=== PATIENT | male | born 1960 | race Two or more races ===

== ENCOUNTER 2018-06-11 15:27 | Inpatient (IN) | payer MEDICAID, MEDICARE ==
[2018-06-11 16:03] LABS: NEUTROPHILE ABSOLUTE 6.7 Th/cmm (1.8-8.0); PLATELET COUNT 160 Th/cmm (150-400)
[2018-06-11 16:05] LABS: % BASOPHILS 0.4 % (0.0-2.0); % EOSINOPHILS 1.5 % (0.0-5.0); % LYMPHOCYTES 31.3 % (20.0-50.0); % MONOCYTES 8.6 % (2.0-10.0); % NEUTROPHILS 58.2 % (40.0-80.0); EOSINOPHILE ABSOLUTE 0.2 Th/cmm (0.1-0.4); HEMATOCRIT 49.1 % (41.0-60); HEMOGLOBIN 16.6 gm/dL (12-16); LYMPHOCYTE ABSOLUTE 3.6 Th/cmm (1.5-3.0); MEAN CELL VOLUME 91.9 fl (80-99); MEAN CORPUSCULAR HGB CONC 33.7 pg (28.0-36.0); MEAN PLATELET VOLUME 9.9 fl; RED BLOOD COUNT 5.35 Mil/cmm (4.30-5.70); WHITE BLOOD COUNT 11.5 Th/cmm (4.8-10.8)
--- NOTE | 2018-06-11 16:11 | ED Physician Chart ---
ED Chief Complaint/HPI - Patient Information Date Seen:: 06/11/18 Time Seen:: 15:48 Chief Complaint:: agitation and combative History of Present Illness:: This is a 58 yo male sent from the skilled nursing for evaluation and treatment for his combative behavior. he is chronically ill with epilepsy,dementia hypertension,copd and psychosis. Allergies:: Allergies Allergy/AdvReac Type Severity Reaction Status Date / Time No Known Allergies Allergy Verified 06/11/18 15:31 Vitals:: Vital Signs - 8 hr 06/11/18 15:40 Temp 98.3 F HR 100 RR 16 BP 130/86 O2 Sat % 95 Historian:: Medical Records Review:: Nurse's Note Reviewed, Old Chart Reviewed, Transfer documents Reviewed ED Review of Systems - Review of Systems General/Constitutional: Other (this patient is unable to give a review of systems.) ED Past Medical History - Past Medical History Obtainable: Yes Past Medical History: HTN, DM, Asthma/COPD Family History: None Social History: Non Smoker, No Alcohol, No Drug Use, Care Facility Psychiatricy History: Schizophrenia, Dementia Medication: Reviewed ED Physical Exam - Physical Examination General/Constitutional: Awake, Well-developed, well-nourished, Alert, No distress, GCS 15, Non-toxic appearing, Ambulatory Head: Atraumatic Eyes: Lids, conjuctiva normal, PERRL, EOMI Skin: Nl inspection, No rash, No skin lesions, No ecchymosis, Well hydrated, No lymphadenopathy ENMT: External ears, nose nl, Nasal exam nl, Lips, teeth, gums nl Neck: Nontender, Full ROM w/o pain, No JVD, No nuchal rigidity, No bruit, No mass, No stridor Respiratory: Nl effort/Exclusion, Clear to Auscultation, No Wheeze/Rhonchi/Rales Cardio Vascular: RRR, No murmur, gallop, rubs, NL S1 S2 GI: No tenderness/rebounding/guarding, No organomegaly, No hernia, Normal BS's, Nondistended, No mass/bruits, No McBurney tenderness : No CVA tenderness Extremities: No tenderness or effusion, Full ROM, normal strength in all extremities, No edema, Normal digits & nails Neuro/Psych: Alert/oriented, DTR's symmetric, Normal sensory exam, Normal motor strength, Judgement/insight normal (poor), Mood normal (combative mood), Normal gait, No focal deficits Misc: Normal back, No paraspinal tenderness ED Labs/Radiology/EKG Results - Radiology Results Results: chest x-ray = nad - EKG Interpretations EKG Time:: 15:57 Rate & Rhythm: rate = 90 [place]: left Intervals: no ectopy seen ED Assessment - Assessment General Assessment: psychosis ED Septic Shock - . Is Septic Shock (SBP<90, OR Lactate>4 mmol\L) present?: No - <6hrs of presentation: Vital Signs: Vital Signs - 8 hr 06/11/18 15:40 Temp 98.3 F HR 100 RR 16 BP 130/86 O2 Sat % 95 ED Reassessment (Disposition) - Diagnosis Diagnosis:: psychosis - Patient Disposition Discharge/Transfer:: Acute Care w/in this hosp Admitting Medical Physician:: Donovan Clarke Admitting Psych Physician:: Deonte Hodgson Condition at Disposition:: Unchanged
[2018-06-11 16:46] LABS: ALB/GLOB RATIO 1.1 (1.0-1.8); ALKALINE PHOSPHATASE 34 U/L (34-104); ANION GAP 12.6 (7.0-16.0); BILIRUBIN,TOTAL 0.3 mg/dL (0.3-1.0); BUN - UREA NITROGEN 17 mg/dL (7-25); CALCIUM SERUM 9.8 mg/dL (8.6-10.3); CARBON DIOXIDE 26.4 mEq/L (21.0-31.0); CHLORIDE 101 mEq/L (98-107); CREATININE - SERUM 0.7 mg/dL (0.7-1.3); GFR AFRICAN-AMERICAN > 60.0 ml/min (>90); GFR NON AFRICAN-AMERICAN > 60.0 ml/min; GLUCOSE 107 mg/dL (70-105); SGOT 18 U/L (13-39); SGPT/ALT 39 U/L (7-52); SODIUM SERUM 136 mEq/L (136-145); TOTAL PROTEIN,SERUM 7.5 gm/dL (6.0-8.3)
[2018-06-11 18:10] VITALS: BP 130/86
[2018-06-11] MEDS ORDERED: Maalox 30 mL Cup PO PRN (18:10)
[2018-06-11] MEDS ORDERED: Magnesium Hydroxide (MOM) 30 mL UDC PO PRN (18:10)
--- NOTE | 2018-06-12 09:23 | Diagnostic Imaging Report ---
CHEST X-RAY: AP view INDICATION: Congestion COMPARISON: None FINDINGS: Low lung volumes are noted with increased bibasal lung markings. Right-sided MATERIAL CHASER shunt is noted. No pleural effusions. Heart size normal. Atherosclerosis of the aortic arch is noted. Degenerative changes of the spine are noted. IMPRESSION: Low lung volumes with increased bibasal lung markings which may be due to atelectasis or scarring however, faint infiltrates cannot be excluded. Slight left basal nodularity is noted, nonspecific, however Short-term follow-up exam with improved inspiration, preferably PA and lateral views are recommended when clinically feasible. Shunt catheter noted. Atherosclerotic vascular disease.
[2018-06-12] MEDS: Calcium Carb/Vit D 500 mg/200 U Tab PO SCH ×2 (10:00→16:54)
[2018-06-12] MEDS: Multivitamin w/ Minerals Tab PO SCH (10:00)
--- NOTE | 2018-06-12 11:57 | History and Physical ---
History of Present Illness - HPI Chief Complaint: Increased in agitation HPI: Patient was send from SNF for evaluation of increased in agitation. Vital Signs: Last Vital Signs Temp 98 F 06/11/18 20:00 Pulse 88 06/11/18 20:00 Resp 18 06/11/18 20:00 BP 126/77 06/11/18 20:00 Pulse Ox 97 06/11/18 20:00 Past Medical History Cardiovascular: Report: CAD, CHF, HTN Pulmonary: Report: No Pertinent Hx FREELANCE WRITER: Report: Dementia GI: Report: No Pertinent Hx Psych: Report: Psychosis, Schizophrenia Musculoskeletal: Report: No Pertinent Hx Rheumatologic: Report: No pertinent Hx Infectious Disease: Report: No Pertinent Hx Renal/: Report: No Pertinent Hx Endocrine: Report: No Pertinent Hx Dermatology: Report: No Pertinent Hx - Past Surgical History Past Surgical History: No pertinent Hx Family Medical History - Family Member Mother History Unknown: Yes Ethnicity: Father History Unknown: Yes Social History Smoke: No Alcohol: None Drugs: None Lives: Longterm Domestic Violence: Negative - Medications Home Medications: Home Medication Medication Instructions Recorded Type Calcium 500 With Vit D 200 Int 1 tab PO BID 09/22/13 History Units Colace 100 mg PO BID 09/22/13 History Depakote ER 1,000 mg PO DAILY 09/22/13 History Kcl 20 meq PO BID 09/22/13 History Klonopin 0.5 mg PO DAILY 09/22/13 History Maalox 30 ml PO Q4H PRN 09/22/13 History Multivitamin & Multimineral 1 tab PO DAILY 09/22/13 History Namenda 10 mg PO BID 09/22/13 History Tylenol 650 mg PO Q6H PRN 09/22/13 History Brimonidine 0.15% Ophth [place] 1 drop EACH EYE TID 06/11/18 History [Alphagan 0.15% Ophth Soln] Brinzolamide [Azopt] 1 drop OP TID 06/11/18 History Latanoprost 0.005% Ophth Soln 1 drop EACH EYE HS 06/11/18 History [Xalatan 0.005% Ophth Soln] Magnesium Hydroxide [Milk of 30 ml PO HS PRN 06/11/18 History Magnesia] - Allergies Allergies/Adverse Reactions: Allergies Allergy/AdvReac Type Severity Reaction Status Date / Time No Known Allergies Allergy Verified 06/11/18 15:31 Review of Systems - Review of Systems Constitutional: Report: No Significant Eyes: Report: No Significant ENT: Report: No Significant Respiratory: Report: No Significant Cardiovascular: Report: No Significant Gastrointestinal: Report: No Significant Genitourinary: Report: No Significant Musculoskeletal: Report: No Significant Skin: Report: No Significant Neurological: Report: No Significant Physical Exam - Physical Exam HEENT: Report: Ears Nose Throat within normal limits Neck: Report: Within normal limits Cardiovascular Systems: Report: Regular, Rate and Rhythm Respiratory: Report: Breath Sounds are within normal limits Abdomen: Report: Non-tender to palpation Back: Report: Inspection of back is within normal limits. Extremities: Report: Non-tender to palpation., Other Skin: Report: Color of skin is within normal limits Neuro/Psych: Report: Disoriented to name time or place - Lab Results All Lab Results last 24 hours: Laboratory Results - last 24 hr 06/11/18 06/11/18 06/11/18 15:55 15:55 15:55 WBC 11.5 H RBC 5.35 Hgb 16.6 Hct 49.1 MCV 91.9 MCH 31.0 H MCHC Differential 33.7 RDW 12.0 Plt Count 160 MPV 9.9 Neutrophils % 58.2 Lymphocytes % 31.3 Monocytes % 8.6 Eosinophils % 1.5 Basophils % 0.4 Sodium 136 Potassium 4.0 Chloride 101 Carbon Dioxide 26.4 Anion Gap 12.6 BUN 17 Creatinine 0.7 Est GFR ( Amer) > 60.0 Est GFR (Non-Af Amer) > 60.0 BUN/Creatinine Ratio 24.3 Glucose 107 H Calcium 9.8 Total Bilirubin 0.3 AST 18 ALT 39 Alkaline Phosphatase 34 Troponin I < 0.01 L Total Protein 7.5 Albumin 4.0 L Globulin 3.5 Albumin/Globulin Ratio 1.1 TSH 06/11/18 15:55 WBC RBC Hgb Hct MCV MCH MCHC Differential RDW Plt Count MPV Neutrophils % Lymphocytes % Monocytes % Eosinophils % Basophils % Sodium Potassium Chloride Carbon Dioxide Anion Gap BUN Creatinine Est GFR ( Amer) Est GFR (Non-Af Amer) BUN/Creatinine Ratio Glucose Calcium Total Bilirubin AST ALT Alkaline Phosphatase Troponin I Total Protein Albumin Globulin Albumin/Globulin Ratio TSH 2.22 - Assessment Assessment: Patient is awake, alert, calm in no acute distress. Dx: Increased in agitation , Psychosis, Dementia, HTN, COPD, - Plan Plan: Patient is follow by Psychiatry. [facility] meds.
--- NOTE | 2018-06-13 03:10 | Psychiatric Evaluation ---
DATE OF SERVICE: 06/12/2018 IDENTIFYING DATA: The patient is a 58-year-old male, resident of [facility] in [place]. Information obtained by directly interviewing the patient as well as reviewing the admission papers and they are reliable. JUSTIFICATION OF HOSPITALIZATION: The patient is admitted here on a voluntary basis in view of his acute agitation and psychosis. CHIEF COMPLAINT: "They brought me in here. I need to go back there." HISTORY OF PRESENT ILLNESS: This is the first psychiatric hospitalization to [facility] for this patient who has been diagnosed to have schizophrenia, chronic paranoid type and the patient has not been making much sense even when we spoke with the [place]. The patient is going on a tangent. The patient has been having difficult time to cope with the stress. The patient is reported to have been very argumentative, agitated and has been testing the limits. The patient at the time of the hospitalization has been very agitated and the patient has to be referred over here for stabilization. I tried to interview the patient with the help of a [place]ian speaking lang interpreter. The patient has not been making much sense and is going on a tangent. The Physical examination is requested to be done by Dr. Clarke and is noted to be significant for hypertension, COPD and possible seizure disorder. PHYSICAL OR SEXUAL ABUSE HISTORY: None. LEGAL PROBLEMS: None at this time. SOCIAL HISTORY: The patient is in fdc facility. MENTAL STATUS EXAMINATION: The patient is a 58-year-old, looking his stated age, superficially cooperative, primarily B[place]udian speaking. The patient is going on a tangent very irritable, angry and is trying to look for an exit door. The patient is reported to be aggressive and resistive to care. The patient's coping skills at this time are noted to be very poor. The patient's speech is noted to be, but is noted to be irrelevant. The patient has paranoid delusions, but denies any command hallucinations. Insight and judgment were noted very much impaired. Impulse control is noted to be poor. Coping skills are also noted to be very poor. We are not able to get any reasonable explanation for this patient, but the patient has been focused on the staff trying to push him down and then he is very much upset about it. The patient's coping skills at this time are noted to be very poor. Insight and judgment also noted to be very much impaired. The patient has been having difficult time to cope with the stress. The patient's behavior is likely a danger to self and others. DIAGNOSTIC IMPRESSION: AXIS I: 1. Psychotic disorder, not otherwise specified 2. Schizophrenia, chronic paranoid type by history. PLAN: To continue the patient with valproic acid and add the Seroquel at 12.5 mg and follow the patient with the supportive therapy. ESTIMATED LENGTH OF STAY: 5-7 days. DISCHARGE CRITERIA: Threat to self or others and be able to cope up with the stress. [facility]# [id number]
[2018-06-13 07:17] LABS: HEMATOCRIT 47.6 % (41.0-60); HEMOGLOBIN 16.2 gm/dL (12-16); MEAN CELL VOLUME 91.8 fl (80-99); MEAN CORPUSCULAR HEMOGLOBIN 31.2 pg (26.0-30.0); MEAN PLATELET VOLUME 10.2 fl; PLATELET COUNT 150 Th/cmm (150-400); RED BLOOD COUNT 5.18 Mil/cmm (4.30-5.70); RED CELL DISTRIBUTION WIDTH 12.2 % (11.5-20.0); WHITE BLOOD COUNT 8.9 Th/cmm (4.8-10.8)
[2018-06-13 07:21] LABS: ALB/GLOB RATIO 1.2 (1.0-1.8); ALBUMIN 3.7 gm/dL (4.2-5.5); ALKALINE PHOSPHATASE 30 U/L (34-104); ANION GAP 9.7 (7.0-16.0); BILIRUBIN,TOTAL 0.7 mg/dL (0.3-1.0); BUN - UREA NITROGEN 12 mg/dL (7-25); CALCIUM SERUM 9.3 mg/dL (8.6-10.3); CARBON DIOXIDE 26.3 mEq/L (21.0-31.0); CHLORIDE 106 mEq/L (98-107); CREATININE - SERUM 0.6 mg/dL (0.7-1.3); GFR AFRICAN-AMERICAN > 60.0 ml/min (>90); GFR NON AFRICAN-AMERICAN > 60.0 ml/min; GLUCOSE 89 mg/dL (70-105); SGOT 24 U/L (13-39); SGPT/ALT 32 U/L (7-52); SODIUM SERUM 138 mEq/L (136-145); TOTAL PROTEIN,SERUM 6.8 gm/dL (6.0-8.3)
[2018-06-13 07:53] LABS: BAND NEUTROPHILE 0 % (0-10); BASOPHIL 0 % (0-3); EOSINOPHIL 3 % (0-5); LYMPHOCYTE 34 % (20-50); MONOCYTE 10 % (2-10); NEUTROPHILS 43 % (40-80)
[2018-06-13] MEDS: Calcium Carb/Vit D 500 mg/200 U Tab PO SCH ×2 (08:42→16:30)
[2018-06-13] MEDS: Multivitamin w/ Minerals Tab PO SCH (08:42)
--- NOTE | 2018-06-13 12:57 | General Progress Note ---
Subjective - Review of Systems Service Date: 06/13/18 Subjective: Patient is confused. Objective - Results Result Diagrams: 06/13/18 06:20 06/13/18 06:20 Recent Labs: Laboratory Last Values WBC 8.9 Th/cmm (4.8-10.8) 06/13/18 06:20 RBC 5.18 Mil/cmm (4.30-5.70) 06/13/18 06:20 Hgb 16.2 gm/dL (12-16) 06/13/18 06:20 Hct 47.6 % (41.0-60) 06/13/18 06:20 MCV 91.8 fl (80-99) 06/13/18 06:20 MCH 31.2 pg (26.0-30.0) H 06/13/18 06:20 MCHC Differential 34.0 pg (28.0-36.0) 06/13/18 06:20 RDW 12.2 % (11.5-20.0) 06/13/18 06:20 Plt Count 150 Th/cmm (150-400) 06/13/18 06:20 MPV 10.2 fl 06/13/18 06:20 Add Manual Diff YES 06/13/18 06:20 Neutrophils % LOCAL TELEPHONE OPERATOR 06/13/18 06:20 Band Neutrophils % 0 % (0-10) 06/13/18 06:20 Lymphocytes % LOCAL TELEPHONE OPERATOR 06/13/18 06:20 Monocytes % LOCAL TELEPHONE OPERATOR 06/13/18 06:20 Eosinophils % LOCAL TELEPHONE OPERATOR 06/13/18 06:20 Basophils % LOCAL TELEPHONE OPERATOR 06/13/18 06:20 Neutrophils (Manual) 43 % (40-80) 06/13/18 06:20 Lymphocytes 34 % (20-50) 06/13/18 06:20 Monocytes 10 % (2-10) 06/13/18 06:20 Eosinophils 3 % (0-5) 06/13/18 06:20 Basophils 0 % (0-3) 06/13/18 06:20 Sodium 138 mEq/L (136-145) 06/13/18 06:20 Potassium 4.0 mEq/L (3.5-5.1) 06/13/18 06:20 Chloride 106 mEq/L (98-107) 06/13/18 06:20 Carbon Dioxide 26.3 mEq/L (21.0-31.0) 06/13/18 06:20 Anion Gap 9.7 (7.0-16.0) 06/13/18 06:20 BUN 12 mg/dL (7-25) 06/13/18 06:20 Creatinine 0.6 mg/dL (0.7-1.3) L 06/13/18 06:20 Est GFR ( Amer) > 60.0 ml/min (>90) 06/13/18 06:20 Est GFR (Non-Af Amer) > 60.0 ml/min 06/13/18 06:20 BUN/Creatinine Ratio 20.0 06/13/18 06:20 Glucose 89 mg/dL (70-105) 06/13/18 06:20 Calcium 9.3 mg/dL (8.6-10.3) 06/13/18 06:20 Total Bilirubin 0.7 mg/dL (0.3-1.0) 06/13/18 06:20 AST 24 U/L (13-39) 06/13/18 06:20 ALT 32 U/L (7-52) 06/13/18 06:20 Alkaline Phosphatase 30 U/L (34-104) L 06/13/18 06:20 Troponin I < 0.01 ng/mL (0.01-0.05) L 06/11/18 15:55 Total Protein 6.8 gm/dL (6.0-8.3) 06/13/18 06:20 Albumin 3.7 gm/dL (4.2-5.5) L 06/13/18 06:20 Globulin 3.1 gm/dL 06/13/18 06:20 Albumin/Globulin Ratio 1.2 (1.0-1.8) 06/13/18 06:20 TSH 2.22 uIU/ml (0.34-5.60) 06/11/18 15:55 - Physical Exam Vitals and I&O: Vital Signs Temp 96.7 F 06/13/18 05:58 Pulse 60 06/13/18 05:58 Resp 20 06/13/18 05:58 BP 96/67 06/13/18 05:58 Pulse Ox 99 06/13/18 05:58 Intake & Output 06/12/18 06/13/18 06/13/18 18:59 06:59 18:59 Intake Total 1800 120 Balance 1800 120 Intake: Oral 1800 120 Other: # Voids 4 3 # Bowel Movements 0 0 Active Medications: Current Medications Acetaminophen (Tylenol) 650 mg PO Q6H PRN PRN Reason: Mild Pain 1-3 / Temp above 100 Stop: 08/10/18 18:09 Al Hydrox/Mg Hydrox/Simethicone (Maalox) 30 ml PO Q4HR PRN PRN Reason: GI DISTRESS Stop: 08/10/18 18:09 Brimonidine Tartrate (Alphagan 0.15% Ophth Soln) 1 drop EACH EYE TID [facility] Stop: 08/11/18 08:59 Last Admin: 06/13/18 08:42 Dose: 1 drop Calcium/Vitamin D (Oscal W/Vitamin D) 1 tab PO BID [facility] Stop: 08/11/18 08:59 Last Admin: 06/13/18 08:42 Dose: 1 tab Clonazepam (Klonopin) 0.5 mg PO DAILY [facility]; Protocol Stop: 08/11/18 08:59 Last Admin: 06/13/18 08:42 Dose: 0.5 mg Divalproex Sodium (Depakote Er) 1,000 mg PO DAILY [facility]; Protocol Stop: 08/11/18 08:59 Last Admin: 06/13/18 08:41 Dose: 1,000 mg Docusate Sodium (Colace) 100 mg PO BID [facility] Stop: 08/11/18 08:59 Last Admin: 06/13/18 08:41 Dose: 100 mg Isoniazid (Inh) 300 mg PO DAILY [facility] Stop: 08/11/18 08:59 Last Admin: 06/13/18 08:42 Dose: 300 mg Latanoprost (Xalatan 0.005% Ophth Soln) 1 drop EACH EYE HS [facility] Stop: 08/11/18 20:59 Last Admin: 06/12/18 21:00 Dose: 1 drop Magnesium Hydroxide (Milk Of Magnesia) 30 ml PO HS PRN PRN Reason: Constipation Memantine (Namenda) 10 mg PO BID [facility] Stop: 08/11/18 08:59 Last Admin: 06/13/18 08:42 Dose: 10 mg Quetiapine Fumarate (Seroquel) 12.5 mg PO HS [facility]; Protocol Stop: 08/11/18 20:59 Last Admin: 06/12/18 21:00 Dose: 12.5 mg Zolpidem Tartrate (Ambien) 5 mg PO HS PRN PRN Reason: Insomnia Stop: 08/10/18 20:59 Last Admin: 06/11/18 20:57 Dose: 5 mg General: Alert, Other (confused, not oriented) HEENT: Atraumatic Neck: Supple Cardiovascular: Regular rate Lungs: Clear to auscultation Abdomen: Bowel sounds, Soft Extremities: Other (No edema) Neurological: Normal gait Skin: Other (and dry) Psych/Mental Status: Other (Confused, not oriented) - Procedures Procedures: Procedures Procedure Code Date OTHER GROUP THERAPY 94.44 09/22/13 Assessment/Plan - Assessment Assessment: Patient is awake, alert, calm in no acute distress. Dx: Increased in agitation , Psychosis, Dementia, HTN, COPD, - Plan Plan: Patient is follow by Psychiatry. Will continue [facility] meds.
--- NOTE | 2018-06-14 03:43 | Progress Notes ---
DATE: 06/13/2018 PSYCHIATRIC PROGRESS NOTE SUBJECTIVE: Staff was spoken to. The patient is interviewed. Mood is noted to be irritable. Affect is constricted. The patient's insight and judgement are noted to be still impaired. Impulse control is noted to be poor. The patient is getting easily agitated. The patient has no insight into his illness. Continues to be very paranoid and is testing the limits. The patient is alert and awake. He knows that he is in the hospital and is stating that someone gave him some beer yesterday and he needs more of it. ASSESSMENT: The patient is still grossly psychotic. PLAN: To increase the dose of the Seroquel to 25 mg and continue the ____ and Klonopin and follow the patient with the supportive therapy. The patient is not ready to be discharged to a lower level of care because of the psychosis. JOB# [id number]
[2018-06-14 08:12] LABS: CHOLESTEROL 113 mg/dL (<200); HDL -HIGH DENSITY LIPOPROTEIN 31 mg/dL (23-92); TRIGLYCERIDES 99 mg/dL (<150)
[2018-06-14] MEDS: Multivitamin w/ Minerals Tab PO SCH (08:43)
[2018-06-14] MEDS: Calcium Carb/Vit D 500 mg/200 U Tab PO SCH ×2 (08:43→16:45)
--- NOTE | 2018-06-14 08:49 | General Progress Note ---
Subjective - Review of Systems Service Date: 06/14/18 Subjective: Patient is confused. Objective - Results Result Diagrams: 06/13/18 06:20 06/13/18 06:20 Recent Labs: Laboratory Last Values WBC 8.9 Th/cmm (4.8-10.8) 06/13/18 06:20 RBC 5.18 Mil/cmm (4.30-5.70) 06/13/18 06:20 Hgb 16.2 gm/dL (12-16) 06/13/18 06:20 Hct 47.6 % (41.0-60) 06/13/18 06:20 MCV 91.8 fl (80-99) 06/13/18 06:20 MCH 31.2 pg (26.0-30.0) H 06/13/18 06:20 MCHC Differential 34.0 pg (28.0-36.0) 06/13/18 06:20 RDW 12.2 % (11.5-20.0) 06/13/18 06:20 Plt Count 150 Th/cmm (150-400) 06/13/18 06:20 MPV 10.2 fl 06/13/18 06:20 Add Manual Diff YES 06/13/18 06:20 Neutrophils % BEHAVIOR INTERVENTIONIST 06/13/18 06:20 Band Neutrophils % 0 % (0-10) 06/13/18 06:20 Lymphocytes % BEHAVIOR INTERVENTIONIST 06/13/18 06:20 Monocytes % BEHAVIOR INTERVENTIONIST 06/13/18 06:20 Eosinophils % BEHAVIOR INTERVENTIONIST 06/13/18 06:20 Basophils % BEHAVIOR INTERVENTIONIST 06/13/18 06:20 Neutrophils (Manual) 43 % (40-80) 06/13/18 06:20 Lymphocytes 34 % (20-50) 06/13/18 06:20 Monocytes 10 % (2-10) 06/13/18 06:20 Eosinophils 3 % (0-5) 06/13/18 06:20 Basophils 0 % (0-3) 06/13/18 06:20 Sodium 138 mEq/L (136-145) 06/13/18 06:20 Potassium 4.0 mEq/L (3.5-5.1) 06/13/18 06:20 Chloride 106 mEq/L (98-107) 06/13/18 06:20 Carbon Dioxide 26.3 mEq/L (21.0-31.0) 06/13/18 06:20 Anion Gap 9.7 (7.0-16.0) 06/13/18 06:20 BUN 12 mg/dL (7-25) 06/13/18 06:20 Creatinine 0.6 mg/dL (0.7-1.3) L 06/13/18 06:20 Est GFR ( Amer) > 60.0 ml/min (>90) 06/13/18 06:20 Est GFR (Non-Af Amer) > 60.0 ml/min 06/13/18 06:20 BUN/Creatinine Ratio 20.0 06/13/18 06:20 Glucose 89 mg/dL (70-105) 06/13/18 06:20 Calcium 9.3 mg/dL (8.6-10.3) 06/13/18 06:20 Total Bilirubin 0.7 mg/dL (0.3-1.0) 06/13/18 06:20 AST 24 U/L (13-39) 06/13/18 06:20 ALT 32 U/L (7-52) 06/13/18 06:20 Alkaline Phosphatase 30 U/L (34-104) L 06/13/18 06:20 Troponin I < 0.01 ng/mL (0.01-0.05) L 06/11/18 15:55 Total Protein 6.8 gm/dL (6.0-8.3) 06/13/18 06:20 Albumin 3.7 gm/dL (4.2-5.5) L 06/13/18 06:20 Globulin 3.1 gm/dL 06/13/18 06:20 Albumin/Globulin Ratio 1.2 (1.0-1.8) 06/13/18 06:20 Triglycerides 99 mg/dL (<150) 06/14/18 07:20 Cholesterol 113 mg/dL (<200) 06/14/18 07:20 LDL Cholesterol Direct 77 mg/dL (75-193) 06/14/18 07:20 HDL Cholesterol 31 mg/dL (23-92) 06/14/18 07:20 TSH 2.22 uIU/ml (0.34-5.60) 06/11/18 15:55 - Physical Exam Vitals and I&O: Vital Signs Temp 96.9 F 06/14/18 06:26 Pulse 58 06/14/18 06:26 Resp 20 06/14/18 06:26 BP 103/64 06/14/18 06:26 Pulse Ox 98 06/14/18 06:26 Intake & Output 06/13/18 06/14/18 06/14/18 18:59 06:59 18:59 Intake Total 900 480 Balance 900 480 Intake: Oral 900 480 Other: # Voids 3 3 # Bowel Movements 1 0 Active Medications: Current Medications Acetaminophen (Tylenol) 650 mg PO Q6H PRN PRN Reason: Mild Pain 1-3 / Temp above 100 Stop: 08/10/18 18:09 Al Hydrox/Mg Hydrox/Simethicone (Maalox) 30 ml PO Q4HR PRN PRN Reason: GI DISTRESS Stop: 08/10/18 18:09 Brimonidine Tartrate (Alphagan 0.15% Ophth Soln) 1 drop EACH EYE TID [facility] Stop: 08/11/18 08:59 Last Admin: 06/14/18 08:42 Dose: 1 drop Calcium/Vitamin D (Oscal W/Vitamin D) 1 tab PO BID [facility] Stop: 08/11/18 08:59 Last Admin: 06/14/18 08:43 Dose: 1 tab Clonazepam (Klonopin) 0.5 mg PO DAILY [facility]; Protocol Stop: 08/11/18 08:59 Last Admin: 06/14/18 08:43 Dose: 0.5 mg Divalproex Sodium (Depakote Er) 1,000 mg PO DAILY [facility]; Protocol Stop: 08/11/18 08:59 Last Admin: 06/14/18 08:42 Dose: 1,000 mg Docusate Sodium (Colace) 100 mg PO BID [facility] Stop: 08/11/18 08:59 Last Admin: 06/14/18 08:43 Dose: 100 mg Isoniazid (Inh) 300 mg PO DAILY [facility] Stop: 08/11/18 08:59 Last Admin: 06/14/18 08:43 Dose: 300 mg Latanoprost (Xalatan 0.005% Ophth Soln) 1 drop EACH EYE HS [facility] Stop: 08/11/18 20:59 Last Admin: 06/13/18 20:50 Dose: 1 drop Magnesium Hydroxide (Milk Of Magnesia) 30 ml PO HS PRN PRN Reason: Constipation Memantine (Namenda) 10 mg PO BID [facility] Stop: 08/11/18 08:59 Last Admin: 06/14/18 08:43 Dose: 10 mg Quetiapine Fumarate (Seroquel) 25 mg PO HS [facility]; Protocol Stop: 08/12/18 20:59 Last Admin: 06/13/18 20:50 Dose: 25 mg Zolpidem Tartrate (Ambien) 5 mg PO HS PRN PRN Reason: Insomnia Stop: 08/10/18 20:59 Last Admin: 06/11/18 20:57 Dose: 5 mg General: Alert, Other (confused, not oriented) HEENT: Atraumatic Neck: Supple Cardiovascular: Regular rate Lungs: Clear to auscultation Abdomen: Bowel sounds, Soft Extremities: Other (No edema) Neurological: Normal gait Skin: Other (and dry) Psych/Mental Status: Other (Confused, not oriented) - Procedures Procedures: Procedures Procedure Code Date OTHER GROUP THERAPY 94.44 09/22/13 Assessment/Plan - Assessment Assessment: Patient is awake, alert, calm in no acute distress. Dx: Increased in agitation , Psychosis, Dementia, HTN, COPD, - Plan Plan: Patient is follow by Psychiatry. Will continue [facility] meds.
--- NOTE | 2018-06-14 10:58 | Consultation ---
DATE OF CONSULTATION: 06/13/2018 REFERRING PHYSICIAN: Negar Hurtado MD TYPE OF CONSULTATION: Psychology. HISTORY OF PRESENT ILLNESS: The patient is a 58-year-old male. The patient is a resident of [facility] and [facility]. The following is by record review and by the patient's self-report. The patient is being seen with Panamanian speaking staff to assist in the interpretation. The patient is being admitted due to acute agitation and possible psychosis. The staff at the patient's facility report that the patient had become argumentative and easily agitated as well as testing the limits of the staff. The patient presents as easily agitated and is markedly tangential. The patient is not making much sense. The Panamanian speaking foundry metallurgist is having difficulty trying to translate the patient's responses to the clinical interview questions. The patient did deny any suicidal ideation or homicidal ideation, plan or intention. PAST MEDICAL HISTORY: Please see history and physical by Dr. Clarke. PAST PSYCHIATRIC HISTORY: The patient has a long history of schizophrenia, chronic paranoid type. The patient is under the care of a psychiatrist and a psychologist at the patient's placement. SUBSTANCE ABUSE HISTORY: None. PSYCHOSOCIAL HISTORY: The patient did not answer questions about occupational or educational history. The patient states he was raised Restorationism. The patient did not answer questions about marital status or family involvement including whether he has any children. Record review indicates the patient is single with no children. The patient did not answer questions about history of physical or sexual abuse. The patient did not answer the questions about current legal problems. The patient is a resident of [facility]. MENTAL STATUS EXAMINATION: The patient appears to be his stated age. The patient's attitude is superficially cooperative. The patient is Panamanian speaking. Panamanian speaking staff is present to assist in the interpretation for this health technical writer. Eye contact is poor. Speech is pressured. Thought process shows to be markedly tangential with loose associations. There is evidence of some paranoid ideation and paranoid delusions. The patient denied any suicidal ideation, plan or intention. The patient denied any auditory or visual hallucinations. The patient's behavior has been resistive to care and somewhat aggressive according to the staff on the unit. Impulse control is inadequate. Concentration is poor. Sensorium is alert and oriented to self only. The patient did not participate in the memory assessment. The patient did not participate in the interpretation of proverbs. The patient's response to questions about striking out towards the staff include the patient's claim that the staff was trying to push him. The patient continued to seem easily angered and trying to leave the room. The patient had difficulty responding to the latter part of the clinical interview questions. Insight is impaired. Judgment is impaired. DIAGNOSTIC IMPRESSION: AXIS I: History of schizophrenia, chronic paranoid type, in acute exacerbation. AXIS II: Deferred. AXIS III: Please see history and physical. TREATMENT PLAN: The patient has been seen by Dr. Hurtado for psychiatric evaluation and for the management of the patient's psychotropic medications. According to the attending psychiatrist, the patient is being continued on valproic acid and Seroquel has been added at 12.5 mg. We will provide supportive psychotherapy to include de-escalation and limit setting to prevent the patient from acting out or striking out at the staff. We will provide motivational enhancement for the patient to become compliant and stay compliant with all aspects of his care and treatment. We will provide reality orientation, differentiation and integration. We will encourage the patient to be able to demonstrate emotional and self-regulation prior to discharge. We will continue to provide the opportunity on a daily basis for the patient to verbally contract for safety to include no self-harm and no harm to others prior to his discharge. We will continue with supportive psychotherapy and include coping strategies for chronic severe mental illness as well. Thank you Dr. Hurtado, for this consult and the opportunity to participate in this patient's care. [facility]# [id number] LANCE
--- NOTE | 2018-06-14 23:57 | Progress Notes ---
DATE: 06/14/2018 PSYCHIATRIC PROGRESS NOTE SUBJECTIVE: Staff was spoken to. The patient is interviewed. Mood is noted to be irritable. Affect is constricted. The patient is extremely irritable and angry and is going on a tangent. The patient's insight and judgment are very much impaired. Impulse control is poor. The patient has not been able to make much sense. The patient is currently on 1000 mg of the Depakote and 25 of the Seroquel. Plan to increase the dose of the Seroquel to 50 mg tonight and follow the patient with supportive therapy. The patient has been going on a tangent and is not able to provide coherent information. JOB# [id number]
[2018-06-15] MEDS: Multivitamin w/ Minerals Tab PO SCH (08:33)
[2018-06-15] MEDS: Calcium Carb/Vit D 500 mg/200 U Tab PO SCH ×2 (08:33→16:51)
--- NOTE | 2018-06-15 08:45 | General Progress Note ---
Subjective - Review of Systems Service Date: 06/15/18 Subjective: Patient is confused. Objective - Results Result Diagrams: 06/13/18 06:20 06/13/18 06:20 Recent Labs: Laboratory Last Values WBC 8.9 Th/cmm (4.8-10.8) 06/13/18 06:20 RBC 5.18 Mil/cmm (4.30-5.70) 06/13/18 06:20 Hgb 16.2 gm/dL (12-16) 06/13/18 06:20 Hct 47.6 % (41.0-60) 06/13/18 06:20 MCV 91.8 fl (80-99) 06/13/18 06:20 MCH 31.2 pg (26.0-30.0) H 06/13/18 06:20 MCHC Differential 34.0 pg (28.0-36.0) 06/13/18 06:20 RDW 12.2 % (11.5-20.0) 06/13/18 06:20 Plt Count 150 Th/cmm (150-400) 06/13/18 06:20 MPV 10.2 fl 06/13/18 06:20 Add Manual Diff YES 06/13/18 06:20 Neutrophils % DB2 DBA 06/13/18 06:20 Band Neutrophils % 0 % (0-10) 06/13/18 06:20 Lymphocytes % DB2 DBA 06/13/18 06:20 Monocytes % DB2 DBA 06/13/18 06:20 Eosinophils % DB2 DBA 06/13/18 06:20 Basophils % DB2 DBA 06/13/18 06:20 Neutrophils (Manual) 43 % (40-80) 06/13/18 06:20 Lymphocytes 34 % (20-50) 06/13/18 06:20 Monocytes 10 % (2-10) 06/13/18 06:20 Eosinophils 3 % (0-5) 06/13/18 06:20 Basophils 0 % (0-3) 06/13/18 06:20 Sodium 138 mEq/L (136-145) 06/13/18 06:20 Potassium 4.0 mEq/L (3.5-5.1) 06/13/18 06:20 Chloride 106 mEq/L (98-107) 06/13/18 06:20 Carbon Dioxide 26.3 mEq/L (21.0-31.0) 06/13/18 06:20 Anion Gap 9.7 (7.0-16.0) 06/13/18 06:20 BUN 12 mg/dL (7-25) 06/13/18 06:20 Creatinine 0.6 mg/dL (0.7-1.3) L 06/13/18 06:20 Est GFR ( Amer) > 60.0 ml/min (>90) 06/13/18 06:20 Est GFR (Non-Af Amer) > 60.0 ml/min 06/13/18 06:20 BUN/Creatinine Ratio 20.0 06/13/18 06:20 Glucose 89 mg/dL (70-105) 06/13/18 06:20 Calcium 9.3 mg/dL (8.6-10.3) 06/13/18 06:20 Total Bilirubin 0.7 mg/dL (0.3-1.0) 06/13/18 06:20 AST 24 U/L (13-39) 06/13/18 06:20 ALT 32 U/L (7-52) 06/13/18 06:20 Alkaline Phosphatase 30 U/L (34-104) L 06/13/18 06:20 Troponin I < 0.01 ng/mL (0.01-0.05) L 06/11/18 15:55 Total Protein 6.8 gm/dL (6.0-8.3) 06/13/18 06:20 Albumin 3.7 gm/dL (4.2-5.5) L 06/13/18 06:20 Globulin 3.1 gm/dL 06/13/18 06:20 Albumin/Globulin Ratio 1.2 (1.0-1.8) 06/13/18 06:20 Triglycerides 99 mg/dL (<150) 06/14/18 07:20 Cholesterol 113 mg/dL (<200) 06/14/18 07:20 LDL Cholesterol Direct 77 mg/dL (75-193) 06/14/18 07:20 HDL Cholesterol 31 mg/dL (23-92) 06/14/18 07:20 TSH 2.22 uIU/ml (0.34-5.60) 06/11/18 15:55 - Physical Exam Vitals and I&O: Vital Signs Temp 97.6 F 06/15/18 06:27 Pulse 57 06/15/18 06:27 Resp 20 06/15/18 06:27 BP 106/58 06/15/18 06:27 Pulse Ox 97 06/15/18 06:27 Intake & Output 06/14/18 06/15/18 06/15/18 18:59 06:59 18:59 Intake Total 1000 480 Balance 1000 480 Intake: Oral 1000 480 Other: # Voids 4 3 # Bowel Movements 1 0 Active Medications: Current Medications Acetaminophen (Tylenol) 650 mg PO Q6H PRN PRN Reason: Mild Pain 1-3 / Temp above 100 Stop: 08/10/18 18:09 Al Hydrox/Mg Hydrox/Simethicone (Maalox) 30 ml PO Q4HR PRN PRN Reason: GI DISTRESS Stop: 08/10/18 18:09 Brimonidine Tartrate (Alphagan 0.15% Ophth Soln) 1 drop EACH EYE TID [facility] Stop: 08/11/18 08:59 Last Admin: 06/15/18 08:37 Dose: 1 drop Calcium/Vitamin D (Oscal W/Vitamin D) 1 tab PO BID [facility] Stop: 08/11/18 08:59 Last Admin: 06/15/18 08:33 Dose: 1 tab Clonazepam (Klonopin) 0.5 mg PO DAILY [facility]; Protocol Stop: 08/11/18 08:59 Last Admin: 06/15/18 08:37 Dose: 0.5 mg Divalproex Sodium (Depakote Er) 1,000 mg PO DAILY [facility]; Protocol Stop: 08/11/18 08:59 Last Admin: 06/15/18 08:34 Dose: 1,000 mg Docusate Sodium (Colace) 100 mg PO BID [facility] Stop: 08/11/18 08:59 Last Admin: 06/15/18 08:37 Dose: 100 mg Isoniazid (Inh) 300 mg PO DAILY [facility] Stop: 08/11/18 08:59 Last Admin: 06/15/18 08:40 Dose: 300 mg Latanoprost (Xalatan 0.005% Ophth Soln) 1 drop EACH EYE HS [facility] Stop: 08/11/18 20:59 Last Admin: 06/14/18 21:41 Dose: 1 drop Magnesium Hydroxide (Milk Of Magnesia) 30 ml PO HS PRN PRN Reason: Constipation Memantine (Namenda) 10 mg PO BID [facility] Stop: 08/11/18 08:59 Last Admin: 06/15/18 08:32 Dose: 10 mg Quetiapine Fumarate (Seroquel) 50 mg PO HS [facility]; Protocol Stop: 08/13/18 20:59 Last Admin: 06/14/18 21:40 Dose: 50 mg Zolpidem Tartrate (Ambien) 5 mg PO HS PRN PRN Reason: Insomnia Stop: 08/10/18 20:59 Last Admin: 06/14/18 21:41 Dose: 5 mg General: Alert, Other (confused, not oriented) HEENT: Atraumatic Neck: Supple Cardiovascular: Regular rate Lungs: Clear to auscultation Abdomen: Bowel sounds, Soft Extremities: Other (No edema) Neurological: Normal gait Skin: Other (and dry) Psych/Mental Status: Other (Confused, not oriented) - Procedures Procedures: Procedures Procedure Code Date OTHER GROUP THERAPY 94.44 09/22/13 Assessment/Plan - Assessment Assessment: Patient is awake, alert, calm in no acute distress. Dx: Increased in agitation , Psychosis, Dementia, HTN, COPD, - Plan Plan: Patient is follow by Psychiatry. Will continue [facility] meds.
--- NOTE | 2018-06-16 06:57 | Progress Notes ---
DATE: 06/15/2018 SUBJECTIVE: Staff was spoken to. The patient is interviewed. Mood is noted to be irritable. Affect is constricted. Insight and judgment at this time are noted to be still impaired. Impulse control is noted to be poor. The patient is testing the limits. No side effects to the medications are noted. The patient has been currently on 50 mg of Seroquel and has been able to tolerate the medication. The patient is being closely monitored for his aggressive behavior. ASSESSMENT: The patient is still psychotic and impulsive. PLAN: To continue the patient with the current medications. I encouraged the patient to verbalize the concerns rather than to act out. JOB# [id number]
[2018-06-16] MEDS: Calcium Carb/Vit D 500 mg/200 U Tab PO SCH ×2 (08:33→17:06)
[2018-06-16] MEDS: Multivitamin w/ Minerals Tab PO SCH (08:33)
--- NOTE | 2018-06-16 08:42 | General Progress Note ---
Subjective - Review of Systems Service Date: 06/16/18 Subjective: Patient is confused. Objective - Results Result Diagrams: 06/13/18 06:20 06/13/18 06:20 Recent Labs: Laboratory Last Values WBC 8.9 Th/cmm (4.8-10.8) 06/13/18 06:20 RBC 5.18 Mil/cmm (4.30-5.70) 06/13/18 06:20 Hgb 16.2 gm/dL (12-16) 06/13/18 06:20 Hct 47.6 % (41.0-60) 06/13/18 06:20 MCV 91.8 fl (80-99) 06/13/18 06:20 MCH 31.2 pg (26.0-30.0) H 06/13/18 06:20 MCHC Differential 34.0 pg (28.0-36.0) 06/13/18 06:20 RDW 12.2 % (11.5-20.0) 06/13/18 06:20 Plt Count 150 Th/cmm (150-400) 06/13/18 06:20 MPV 10.2 fl 06/13/18 06:20 Add Manual Diff YES 06/13/18 06:20 Neutrophils % DOCTOR OF CHIROPRACTIC 06/13/18 06:20 Band Neutrophils % 0 % (0-10) 06/13/18 06:20 Lymphocytes % DOCTOR OF CHIROPRACTIC 06/13/18 06:20 Monocytes % DOCTOR OF CHIROPRACTIC 06/13/18 06:20 Eosinophils % DOCTOR OF CHIROPRACTIC 06/13/18 06:20 Basophils % DOCTOR OF CHIROPRACTIC 06/13/18 06:20 Neutrophils (Manual) 43 % (40-80) 06/13/18 06:20 Lymphocytes 34 % (20-50) 06/13/18 06:20 Monocytes 10 % (2-10) 06/13/18 06:20 Eosinophils 3 % (0-5) 06/13/18 06:20 Basophils 0 % (0-3) 06/13/18 06:20 Sodium 138 mEq/L (136-145) 06/13/18 06:20 Potassium 4.0 mEq/L (3.5-5.1) 06/13/18 06:20 Chloride 106 mEq/L (98-107) 06/13/18 06:20 Carbon Dioxide 26.3 mEq/L (21.0-31.0) 06/13/18 06:20 Anion Gap 9.7 (7.0-16.0) 06/13/18 06:20 BUN 12 mg/dL (7-25) 06/13/18 06:20 Creatinine 0.6 mg/dL (0.7-1.3) L 06/13/18 06:20 Est GFR ( Amer) > 60.0 ml/min (>90) 06/13/18 06:20 Est GFR (Non-Af Amer) > 60.0 ml/min 06/13/18 06:20 BUN/Creatinine Ratio 20.0 06/13/18 06:20 Glucose 89 mg/dL (70-105) 06/13/18 06:20 Calcium 9.3 mg/dL (8.6-10.3) 06/13/18 06:20 Total Bilirubin 0.7 mg/dL (0.3-1.0) 06/13/18 06:20 AST 24 U/L (13-39) 06/13/18 06:20 ALT 32 U/L (7-52) 06/13/18 06:20 Alkaline Phosphatase 30 U/L (34-104) L 06/13/18 06:20 Troponin I < 0.01 ng/mL (0.01-0.05) L 06/11/18 15:55 Total Protein 6.8 gm/dL (6.0-8.3) 06/13/18 06:20 Albumin 3.7 gm/dL (4.2-5.5) L 06/13/18 06:20 Globulin 3.1 gm/dL 06/13/18 06:20 Albumin/Globulin Ratio 1.2 (1.0-1.8) 06/13/18 06:20 Triglycerides 99 mg/dL (<150) 06/14/18 07:20 Cholesterol 113 mg/dL (<200) 06/14/18 07:20 LDL Cholesterol Direct 77 mg/dL (75-193) 06/14/18 07:20 HDL Cholesterol 31 mg/dL (23-92) 06/14/18 07:20 TSH 2.22 uIU/ml (0.34-5.60) 06/11/18 15:55 - Physical Exam Vitals and I&O: Vital Signs Temp 96.8 F 06/16/18 06:22 Pulse 55 06/16/18 06:22 Resp 19 06/16/18 06:22 BP 102/62 06/16/18 06:22 Pulse Ox 98 06/16/18 06:22 Intake & Output 06/15/18 06/16/18 06/16/18 18:59 06:59 18:59 Intake Total 120 Balance 120 Intake: Oral 120 Other: # Voids 3 3 # Bowel Movements 1 0 Active Medications: Current Medications Acetaminophen (Tylenol) 650 mg PO Q6H PRN PRN Reason: Mild Pain 1-3 / Temp above 100 Stop: 08/10/18 18:09 Al Hydrox/Mg Hydrox/Simethicone (Maalox) 30 ml PO Q4HR PRN PRN Reason: GI DISTRESS Stop: 08/10/18 18:09 Brimonidine Tartrate (Alphagan 0.15% Ophth Soln) 1 drop EACH EYE TID [facility] Stop: 08/11/18 08:59 Last Admin: 06/16/18 08:34 Dose: 1 drop Calcium/Vitamin D (Oscal W/Vitamin D) 1 tab PO BID [facility] Stop: 08/11/18 08:59 Last Admin: 06/16/18 08:33 Dose: 1 tab Clonazepam (Klonopin) 0.5 mg PO DAILY [facility]; Protocol Stop: 08/11/18 08:59 Last Admin: 06/16/18 08:32 Dose: 0.5 mg Divalproex Sodium (Depakote Er) 1,000 mg PO DAILY [facility]; Protocol Stop: 08/11/18 08:59 Last Admin: 06/16/18 08:33 Dose: 1,000 mg Docusate Sodium (Colace) 100 mg PO BID [facility] Stop: 08/11/18 08:59 Last Admin: 06/16/18 08:32 Dose: 100 mg Isoniazid (Inh) 300 mg PO DAILY [facility] Stop: 08/11/18 08:59 Last Admin: 06/16/18 08:33 Dose: 300 mg Latanoprost (Xalatan 0.005% Ophth Soln) 1 drop EACH EYE HS [facility] Stop: 08/11/18 20:59 Last Admin: 06/15/18 20:51 Dose: 1 drop Magnesium Hydroxide (Milk Of Magnesia) 30 ml PO HS PRN PRN Reason: Constipation Memantine (Namenda) 10 mg PO BID [facility] Stop: 08/11/18 08:59 Last Admin: 06/16/18 08:33 Dose: 10 mg Quetiapine Fumarate (Seroquel) 50 mg PO HS [facility]; Protocol Stop: 08/13/18 20:59 Last Admin: 06/15/18 20:51 Dose: 50 mg Zolpidem Tartrate (Ambien) 5 mg PO HS PRN PRN Reason: Insomnia Stop: 08/10/18 20:59 Last Admin: 06/14/18 21:41 Dose: 5 mg General: Alert, Other (confused, not oriented) HEENT: Atraumatic Neck: Supple Cardiovascular: Regular rate Lungs: Clear to auscultation Abdomen: Bowel sounds, Soft Extremities: Other (No edema) Neurological: Normal gait Skin: Other (and dry) Psych/Mental Status: Other (Confused, not oriented) - Procedures Procedures: Procedures Procedure Code Date OTHER GROUP THERAPY 94.44 09/22/13 Assessment/Plan - Assessment Assessment: Patient is awake, alert, calm in no acute distress. Dx: Increased in agitation , Psychosis, Dementia, HTN, COPD, - Plan Plan: Patient is follow by Psychiatry. Will continue [facility] meds.
--- NOTE | 2018-06-16 15:29 | Progress Notes ---
DATE: 06/16/2018 PSYCHIATRIC PROGRESS NOTE PROGRESS ON THE UNIT: Staff was spoken to. The patient is interviewed. Mood is noted to be irritable. Affect is constricted. Insight and judgment at this time are noted to still impaired. Impulse control is noted to be limited. Coping skills are noted to be limited. The patient has been having difficult time to cope with the stress. The patient continues to be paranoid and is going on a tangent. ASSESSMENT: The patient is still psychotic and impulsive. PLAN: To continue the patient with current medications and followup. JOB# [id number]
--- NOTE | 2018-06-17 09:38 | General Progress Note ---
Subjective - Review of Systems Service Date: 06/17/18 Subjective: Patient is confused. Objective - Results Result Diagrams: 06/13/18 06:20 06/13/18 06:20 Recent Labs: Laboratory Last Values WBC 8.9 Th/cmm (4.8-10.8) 06/13/18 06:20 RBC 5.18 Mil/cmm (4.30-5.70) 06/13/18 06:20 Hgb 16.2 gm/dL (12-16) 06/13/18 06:20 Hct 47.6 % (41.0-60) 06/13/18 06:20 MCV 91.8 fl (80-99) 06/13/18 06:20 MCH 31.2 pg (26.0-30.0) H 06/13/18 06:20 MCHC Differential 34.0 pg (28.0-36.0) 06/13/18 06:20 RDW 12.2 % (11.5-20.0) 06/13/18 06:20 Plt Count 150 Th/cmm (150-400) 06/13/18 06:20 MPV 10.2 fl 06/13/18 06:20 Add Manual Diff YES 06/13/18 06:20 Neutrophils % ESTIMATOR LUMBER 06/13/18 06:20 Band Neutrophils % 0 % (0-10) 06/13/18 06:20 Lymphocytes % ESTIMATOR LUMBER 06/13/18 06:20 Monocytes % ESTIMATOR LUMBER 06/13/18 06:20 Eosinophils % ESTIMATOR LUMBER 06/13/18 06:20 Basophils % ESTIMATOR LUMBER 06/13/18 06:20 Neutrophils (Manual) 43 % (40-80) 06/13/18 06:20 Lymphocytes 34 % (20-50) 06/13/18 06:20 Monocytes 10 % (2-10) 06/13/18 06:20 Eosinophils 3 % (0-5) 06/13/18 06:20 Basophils 0 % (0-3) 06/13/18 06:20 Sodium 138 mEq/L (136-145) 06/13/18 06:20 Potassium 4.0 mEq/L (3.5-5.1) 06/13/18 06:20 Chloride 106 mEq/L (98-107) 06/13/18 06:20 Carbon Dioxide 26.3 mEq/L (21.0-31.0) 06/13/18 06:20 Anion Gap 9.7 (7.0-16.0) 06/13/18 06:20 BUN 12 mg/dL (7-25) 06/13/18 06:20 Creatinine 0.6 mg/dL (0.7-1.3) L 06/13/18 06:20 Est GFR ( Amer) > 60.0 ml/min (>90) 06/13/18 06:20 Est GFR (Non-Af Amer) > 60.0 ml/min 06/13/18 06:20 BUN/Creatinine Ratio 20.0 06/13/18 06:20 Glucose 89 mg/dL (70-105) 06/13/18 06:20 Calcium 9.3 mg/dL (8.6-10.3) 06/13/18 06:20 Total Bilirubin 0.7 mg/dL (0.3-1.0) 06/13/18 06:20 AST 24 U/L (13-39) 06/13/18 06:20 ALT 32 U/L (7-52) 06/13/18 06:20 Alkaline Phosphatase 30 U/L (34-104) L 06/13/18 06:20 Troponin I < 0.01 ng/mL (0.01-0.05) L 06/11/18 15:55 Total Protein 6.8 gm/dL (6.0-8.3) 06/13/18 06:20 Albumin 3.7 gm/dL (4.2-5.5) L 06/13/18 06:20 Globulin 3.1 gm/dL 06/13/18 06:20 Albumin/Globulin Ratio 1.2 (1.0-1.8) 06/13/18 06:20 Triglycerides 99 mg/dL (<150) 06/14/18 07:20 Cholesterol 113 mg/dL (<200) 06/14/18 07:20 LDL Cholesterol Direct 77 mg/dL (75-193) 06/14/18 07:20 HDL Cholesterol 31 mg/dL (23-92) 06/14/18 07:20 TSH 2.22 uIU/ml (0.34-5.60) 06/11/18 15:55 - Physical Exam Vitals and I&O: Vital Signs Temp 97.3 F 06/17/18 06:58 Pulse 69 06/17/18 06:58 Resp 20 06/17/18 06:58 BP 100/60 06/17/18 06:58 Pulse Ox 98 06/16/18 14:00 Intake & Output 06/16/18 06/17/18 06/17/18 18:59 06:59 18:59 Intake Total 1600 Balance 1600 Intake: Oral 1600 Other: # Voids 4 # Bowel Movements 0 Active Medications: Current Medications Acetaminophen (Tylenol) 650 mg PO Q6H PRN PRN Reason: Mild Pain 1-3 / Temp above 100 Stop: 08/10/18 18:09 Al Hydrox/Mg Hydrox/Simethicone (Maalox) 30 ml PO Q4HR PRN PRN Reason: GI DISTRESS Stop: 08/10/18 18:09 Brimonidine Tartrate (Alphagan 0.15% Ophth Soln) 1 drop EACH EYE TID [facility] Stop: 08/11/18 08:59 Last Admin: 06/16/18 20:33 Dose: 1 drop Calcium/Vitamin D (Oscal W/Vitamin D) 1 tab PO BID [facility] Stop: 08/11/18 08:59 Last Admin: 06/16/18 17:06 Dose: 1 tab Clonazepam (Klonopin) 0.5 mg PO DAILY [facility]; Protocol Stop: 08/11/18 08:59 Last Admin: 06/16/18 08:32 Dose: 0.5 mg Divalproex Sodium (Depakote Er) 1,000 mg PO DAILY [facility]; Protocol Stop: 08/11/18 08:59 Last Admin: 06/16/18 08:33 Dose: 1,000 mg Docusate Sodium (Colace) 100 mg PO BID [facility] Stop: 08/11/18 08:59 Last Admin: 06/16/18 17:06 Dose: 100 mg Isoniazid (Inh) 300 mg PO DAILY [facility] Stop: 08/11/18 08:59 Last Admin: 06/16/18 08:33 Dose: 300 mg Latanoprost (Xalatan 0.005% Ophth Soln) 1 drop EACH EYE HS [facility] Stop: 08/11/18 20:59 Last Admin: 06/16/18 20:33 Dose: 1 drop Magnesium Hydroxide (Milk Of Magnesia) 30 ml PO HS PRN PRN Reason: Constipation Memantine (Namenda) 10 mg PO BID [facility] Stop: 08/11/18 08:59 Last Admin: 06/16/18 17:06 Dose: 10 mg Quetiapine Fumarate (Seroquel) 50 mg PO HS [facility]; Protocol Stop: 08/13/18 20:59 Last Admin: 06/16/18 20:33 Dose: 50 mg Zolpidem Tartrate (Ambien) 5 mg PO HS PRN PRN Reason: Insomnia Stop: 08/10/18 20:59 Last Admin: 06/14/18 21:41 Dose: 5 mg General: Alert, Other (confused, not oriented) HEENT: Atraumatic Neck: Supple Cardiovascular: Regular rate Lungs: Clear to auscultation Abdomen: Bowel sounds, Soft Extremities: Other (No edema) Neurological: Normal gait Skin: Other (and dry) Psych/Mental Status: Other (Confused, not oriented) - Procedures Procedures: Procedures Procedure Code Date OTHER GROUP THERAPY 94.44 09/22/13 Assessment/Plan - Assessment Assessment: Patient is awake, alert, calm in no acute distress. Dx: Increased in agitation , Psychosis, Dementia, HTN, COPD, - Plan Plan: Patient is follow by Psychiatry. Will continue [facility] meds.
[2018-06-17] MEDS: Calcium Carb/Vit D 500 mg/200 U Tab PO SCH ×2 (10:08→17:17)
[2018-06-17] MEDS: Multivitamin w/ Minerals Tab PO SCH (10:10)
--- NOTE | 2018-06-18 03:02 | Progress Notes ---
DATE: 06/17/2018 PSYCHIATRIC PROGRESS NOTE SUBJECTIVE: Staff was spoken to. The patient is interviewed. Mood is noted to be irritable. Affect is constricted. The patient has been having difficult time to cope with the stress. He continues to have paranoid delusions. The patient is pacing on the unit. The patient, however, has been able to tolerate the medication. No seizures are reported. ASSESSMENT: The patient is still impulsive and paranoid. PLAN: To continue the patient with supportive therapy and follow up. [facility]# [id number]
--- NOTE | 2018-06-18 09:58 | General Progress Note ---
Subjective - Review of Systems Service Date: 06/18/19 Subjective: Patient is confused. Objective - Results Result Diagrams: 06/13/18 06:20 06/13/18 06:20 Recent Labs: Laboratory Last Values WBC 8.9 Th/cmm (4.8-10.8) 06/13/18 06:20 RBC 5.18 Mil/cmm (4.30-5.70) 06/13/18 06:20 Hgb 16.2 gm/dL (12-16) 06/13/18 06:20 Hct 47.6 % (41.0-60) 06/13/18 06:20 MCV 91.8 fl (80-99) 06/13/18 06:20 MCH 31.2 pg (26.0-30.0) H 06/13/18 06:20 MCHC Differential 34.0 pg (28.0-36.0) 06/13/18 06:20 RDW 12.2 % (11.5-20.0) 06/13/18 06:20 Plt Count 150 Th/cmm (150-400) 06/13/18 06:20 MPV 10.2 fl 06/13/18 06:20 Add Manual Diff YES 06/13/18 06:20 Neutrophils % NUISANCE ANIMAL DAMAGE CONTROL AGENT 06/13/18 06:20 Band Neutrophils % 0 % (0-10) 06/13/18 06:20 Lymphocytes % NUISANCE ANIMAL DAMAGE CONTROL AGENT 06/13/18 06:20 Monocytes % NUISANCE ANIMAL DAMAGE CONTROL AGENT 06/13/18 06:20 Eosinophils % NUISANCE ANIMAL DAMAGE CONTROL AGENT 06/13/18 06:20 Basophils % NUISANCE ANIMAL DAMAGE CONTROL AGENT 06/13/18 06:20 Neutrophils (Manual) 43 % (40-80) 06/13/18 06:20 Lymphocytes 34 % (20-50) 06/13/18 06:20 Monocytes 10 % (2-10) 06/13/18 06:20 Eosinophils 3 % (0-5) 06/13/18 06:20 Basophils 0 % (0-3) 06/13/18 06:20 Sodium 138 mEq/L (136-145) 06/13/18 06:20 Potassium 4.0 mEq/L (3.5-5.1) 06/13/18 06:20 Chloride 106 mEq/L (98-107) 06/13/18 06:20 Carbon Dioxide 26.3 mEq/L (21.0-31.0) 06/13/18 06:20 Anion Gap 9.7 (7.0-16.0) 06/13/18 06:20 BUN 12 mg/dL (7-25) 06/13/18 06:20 Creatinine 0.6 mg/dL (0.7-1.3) L 06/13/18 06:20 Est GFR ( Amer) > 60.0 ml/min (>90) 06/13/18 06:20 Est GFR (Non-Af Amer) > 60.0 ml/min 06/13/18 06:20 BUN/Creatinine Ratio 20.0 06/13/18 06:20 Glucose 89 mg/dL (70-105) 06/13/18 06:20 Calcium 9.3 mg/dL (8.6-10.3) 06/13/18 06:20 Total Bilirubin 0.7 mg/dL (0.3-1.0) 06/13/18 06:20 AST 24 U/L (13-39) 06/13/18 06:20 ALT 32 U/L (7-52) 06/13/18 06:20 Alkaline Phosphatase 30 U/L (34-104) L 06/13/18 06:20 Troponin I < 0.01 ng/mL (0.01-0.05) L 06/11/18 15:55 Total Protein 6.8 gm/dL (6.0-8.3) 06/13/18 06:20 Albumin 3.7 gm/dL (4.2-5.5) L 06/13/18 06:20 Globulin 3.1 gm/dL 06/13/18 06:20 Albumin/Globulin Ratio 1.2 (1.0-1.8) 06/13/18 06:20 Triglycerides 99 mg/dL (<150) 06/14/18 07:20 Cholesterol 113 mg/dL (<200) 06/14/18 07:20 LDL Cholesterol Direct 77 mg/dL (75-193) 06/14/18 07:20 HDL Cholesterol 31 mg/dL (23-92) 06/14/18 07:20 TSH 2.22 uIU/ml (0.34-5.60) 06/11/18 15:55 - Physical Exam Vitals and I&O: Vital Signs Temp 97.2 F 06/18/18 06:04 Pulse 67 06/18/18 06:04 Resp 18 06/18/18 06:04 BP 99/65 06/18/18 06:04 Pulse Ox 94 06/18/18 06:04 Intake & Output 06/17/18 06/18/18 06/18/18 18:59 06:59 18:59 Intake Total 1200 480 Balance 1200 480 Intake: Oral 1200 480 Other: # Voids 2 # Bowel Movements 1 Active Medications: Current Medications Acetaminophen (Tylenol) 650 mg PO Q6H PRN PRN Reason: Mild Pain 1-3 / Temp above 100 Stop: 08/10/18 18:09 Al Hydrox/Mg Hydrox/Simethicone (Maalox) 30 ml PO Q4HR PRN PRN Reason: GI DISTRESS Stop: 08/10/18 18:09 Brimonidine Tartrate (Alphagan 0.15% Ophth Soln) 1 drop EACH EYE TID [facility] Stop: 08/11/18 08:59 Last Admin: 06/17/18 20:55 Dose: 1 drop Calcium/Vitamin D (Oscal W/Vitamin D) 1 tab PO BID [facility] Stop: 08/11/18 08:59 Last Admin: 06/17/18 17:17 Dose: 1 tab Clonazepam (Klonopin) 0.5 mg PO DAILY [facility]; Protocol Stop: 08/11/18 08:59 Last Admin: 06/17/18 10:08 Dose: 0.5 mg Divalproex Sodium (Depakote Er) 1,000 mg PO DAILY [facility]; Protocol Stop: 08/11/18 08:59 Last Admin: 06/17/18 10:08 Dose: 1,000 mg Docusate Sodium (Colace) 100 mg PO BID [facility] Stop: 08/11/18 08:59 Last Admin: 06/17/18 17:17 Dose: 100 mg Isoniazid (Inh) 300 mg PO DAILY [facility] Stop: 08/11/18 08:59 Last Admin: 06/17/18 10:37 Dose: 300 mg Latanoprost (Xalatan 0.005% Ophth Soln) 1 drop EACH EYE HS [facility] Stop: 08/11/18 20:59 Last Admin: 06/17/18 20:55 Dose: 1 drop Magnesium Hydroxide (Milk Of Magnesia) 30 ml PO HS PRN PRN Reason: Constipation Memantine (Namenda) 10 mg PO BID [facility] Stop: 08/11/18 08:59 Last Admin: 06/17/18 17:18 Dose: 10 mg Quetiapine Fumarate (Seroquel) 50 mg PO HS [facility]; Protocol Stop: 08/13/18 20:59 Last Admin: 06/17/18 20:54 Dose: 50 mg Zolpidem Tartrate (Ambien) 5 mg PO HS PRN PRN Reason: Insomnia Stop: 08/10/18 20:59 Last Admin: 06/17/18 21:49 Dose: 5 mg General: Alert, Other (confused, not oriented) HEENT: Atraumatic Neck: Supple Cardiovascular: Regular rate Lungs: Clear to auscultation Abdomen: Bowel sounds, Soft Extremities: Other (No edema) Neurological: Normal gait Skin: Other (and dry) Psych/Mental Status: Other (Confused, not oriented) - Procedures Procedures: Procedures Procedure Code Date OTHER GROUP THERAPY 94.44 09/22/13 Assessment/Plan - Assessment Assessment: Patient is awake, alert, calm in no acute distress. Dx: Increased in agitation , Psychosis, Dementia, HTN, COPD, - Plan Plan: Patient is follow by Psychiatry. Will continue [facility] meds. Nutritional Asmnt/Malnutr-PDOC - Dietary Evaluation Malnutrition Findings (Please click <Entered> for more info): Nutritional Asmnt/Malnutrition Start: 06/17/18 14: 21 Text: Status: Complete Freq: Protocol: Document 06/17/18 14:21 LCHENG (Rec: 06/17/18 14:32 [email or web address]) Nutritional Asmnt/Malnutrition Patient General Information Nutritional Screening Low Risk Diagnosis psychosis Pertinent Medical Hx/Surgical Hx CAD, CHF, HTN, dementia, psychosis, schizophrenia Subjective Information Pt seen in [facility], [place] speaking. Per EMR, PO intake 100%. Current Diet Order/ Nutrition Support regular Pertinent Medications oscal w/vit D, colace, seroquel Pertinent Labs 06/13 Cr 0.6, alb 3.7, glucose 89 9/8 glucose 107, alb 4.0 Nutritional Hx/Data Height 1.73 m Height (Calculated Centimeters) 172.7 Current Weight (lbs) 72.575 kg Weight (Calculated Kilograms) 72.6 Weight (Calculated Grams) 23837.8 [place] Body Weight 154 Body Mass Index (BMI) 24.3 Weight Status Approriate GI Symptoms GI Symptoms None Last BM 06/15 Difficult in: None Skin Integrity/Comment: dryness Current %PO Good (75-100%) Estimated Nutritional Goals BEE in Kcals: Using Current wt Calories/Kcals/Kg 25-30 Kcals Calculated 1589-9935 Protein: Using Current wt Protein g/k Protein Calculated 73 Fluid: ml 1825-2190ml (1ml/kcal) Nutritional Problem No current Nutrition Prob Problem N/A Malnutrition Alert Is there a minimum of two criteria No selected? Query Text:Check all the applicable criteria. A minimum of two criteria are recommended for diagnosis of either severe or non-severe malnutrition. Malnutrition Related to Morbid Obesity Malnutrition related to morbid obesity No Intervention/Recommendation Comments 1. Continue with regular diet as ordered. 2. Monitor PO intake, wt, labs and skin integrity 3. F/U as low risk in 7 days, 06/24 Expected Outcomes/Goals Expected Outcomes/Goals 1. PO intake to meet at least 75% of nutritional needs. 2. Wt stability, skin to remain intact, labs to approach WNL.
[2018-06-18] MEDS: Calcium Carb/Vit D 500 mg/200 U Tab PO SCH ×2 (10:03→17:33)
[2018-06-18] MEDS: Multivitamin w/ Minerals Tab PO SCH (10:03)
--- NOTE | 2018-06-18 13:18 | Progress Notes ---
DATE: 06/18/2018 PSYCHIATRIC PROGRESS NOTE PROGRESS ON THE UNIT: Staff was spoken to. The patient is interviewed. Mood is noted to be anxious. Affect is constricted. The patient's insight and judgment are noted to be improving. Impulse control seems to be limited. The patient has paranoid delusions, but denies any command hallucinations. The patient is stating that he is going to be requesting to be transferred back to the facility. The patient is currently on 50 mg of Seroquel and able to tolerate the medication, but in view of the paranoia, I have decided to increase the dose on Seroquel to 100 mg tonight and follow the patient up with the supportive therapy. [facility]# [id number]
[2018-06-19] MEDS: Multivitamin w/ Minerals Tab PO SCH (08:47)
[2018-06-19] MEDS: Calcium Carb/Vit D 500 mg/200 U Tab PO SCH ×2 (08:48→17:33)
--- NOTE | 2018-06-19 10:16 | General Progress Note ---
Subjective - Review of Systems Service Date: 06/19/18 Subjective: Patient is confused. Objective - Results Result Diagrams: 06/13/18 06:20 06/13/18 06:20 Recent Labs: Laboratory Last Values WBC 8.9 Th/cmm (4.8-10.8) 06/13/18 06:20 RBC 5.18 Mil/cmm (4.30-5.70) 06/13/18 06:20 Hgb 16.2 gm/dL (12-16) 06/13/18 06:20 Hct 47.6 % (41.0-60) 06/13/18 06:20 MCV 91.8 fl (80-99) 06/13/18 06:20 MCH 31.2 pg (26.0-30.0) H 06/13/18 06:20 MCHC Differential 34.0 pg (28.0-36.0) 06/13/18 06:20 RDW 12.2 % (11.5-20.0) 06/13/18 06:20 Plt Count 150 Th/cmm (150-400) 06/13/18 06:20 MPV 10.2 fl 06/13/18 06:20 Add Manual Diff YES 06/13/18 06:20 Neutrophils % STATIONARY EQUIPMENT MECHANIC 06/13/18 06:20 Band Neutrophils % 0 % (0-10) 06/13/18 06:20 Lymphocytes % STATIONARY EQUIPMENT MECHANIC 06/13/18 06:20 Monocytes % STATIONARY EQUIPMENT MECHANIC 06/13/18 06:20 Eosinophils % STATIONARY EQUIPMENT MECHANIC 06/13/18 06:20 Basophils % STATIONARY EQUIPMENT MECHANIC 06/13/18 06:20 Neutrophils (Manual) 43 % (40-80) 06/13/18 06:20 Lymphocytes 34 % (20-50) 06/13/18 06:20 Monocytes 10 % (2-10) 06/13/18 06:20 Eosinophils 3 % (0-5) 06/13/18 06:20 Basophils 0 % (0-3) 06/13/18 06:20 Sodium 138 mEq/L (136-145) 06/13/18 06:20 Potassium 4.0 mEq/L (3.5-5.1) 06/13/18 06:20 Chloride 106 mEq/L (98-107) 06/13/18 06:20 Carbon Dioxide 26.3 mEq/L (21.0-31.0) 06/13/18 06:20 Anion Gap 9.7 (7.0-16.0) 06/13/18 06:20 BUN 12 mg/dL (7-25) 06/13/18 06:20 Creatinine 0.6 mg/dL (0.7-1.3) L 06/13/18 06:20 Est GFR ( Amer) > 60.0 ml/min (>90) 06/13/18 06:20 Est GFR (Non-Af Amer) > 60.0 ml/min 06/13/18 06:20 BUN/Creatinine Ratio 20.0 06/13/18 06:20 Glucose 89 mg/dL (70-105) 06/13/18 06:20 Calcium 9.3 mg/dL (8.6-10.3) 06/13/18 06:20 Total Bilirubin 0.7 mg/dL (0.3-1.0) 06/13/18 06:20 AST 24 U/L (13-39) 06/13/18 06:20 ALT 32 U/L (7-52) 06/13/18 06:20 Alkaline Phosphatase 30 U/L (34-104) L 06/13/18 06:20 Troponin I < 0.01 ng/mL (0.01-0.05) L 06/11/18 15:55 Total Protein 6.8 gm/dL (6.0-8.3) 06/13/18 06:20 Albumin 3.7 gm/dL (4.2-5.5) L 06/13/18 06:20 Globulin 3.1 gm/dL 06/13/18 06:20 Albumin/Globulin Ratio 1.2 (1.0-1.8) 06/13/18 06:20 Triglycerides 99 mg/dL (<150) 06/14/18 07:20 Cholesterol 113 mg/dL (<200) 06/14/18 07:20 LDL Cholesterol Direct 77 mg/dL (75-193) 06/14/18 07:20 HDL Cholesterol 31 mg/dL (23-92) 06/14/18 07:20 TSH 2.22 uIU/ml (0.34-5.60) 06/11/18 15:55 - Physical Exam Vitals and I&O: Vital Signs Temp 97.2 F 06/19/18 06:28 Pulse 68 06/19/18 06:28 Resp 20 06/19/18 06:28 BP 110/70 06/19/18 06:28 Pulse Ox 97 06/19/18 06:28 Intake & Output 06/18/18 06/19/18 06/19/18 18:59 06:59 18:59 Intake Total 1200 480 Balance 1200 480 Intake: Oral 1200 480 Other: # Voids 2 # Bowel Movements 1 Active Medications: Current Medications Acetaminophen (Tylenol) 650 mg PO Q6H PRN PRN Reason: Mild Pain 1-3 / Temp above 100 Stop: 08/10/18 18:09 Al Hydrox/Mg Hydrox/Simethicone (Maalox) 30 ml PO Q4HR PRN PRN Reason: GI DISTRESS Stop: 08/10/18 18:09 Brimonidine Tartrate (Alphagan 0.15% Ophth Soln) 1 drop EACH EYE TID [facility] Stop: 08/11/18 08:59 Last Admin: 06/19/18 08:53 Dose: 1 drop Calcium/Vitamin D (Oscal W/Vitamin D) 1 tab PO BID [facility] Stop: 08/11/18 08:59 Last Admin: 06/19/18 08:48 Dose: 1 tab Clonazepam (Klonopin) 0.5 mg PO DAILY [facility]; Protocol Stop: 08/11/18 08:59 Last Admin: 06/19/18 08:48 Dose: 0.5 mg Divalproex Sodium (Depakote Er) 1,000 mg PO DAILY [facility]; Protocol Stop: 08/11/18 08:59 Last Admin: 06/19/18 08:48 Dose: 1,000 mg Docusate Sodium (Colace) 100 mg PO BID [facility] Stop: 08/11/18 08:59 Last Admin: 06/19/18 08:48 Dose: 100 mg Isoniazid (Inh) 300 mg PO DAILY [facility] Stop: 08/11/18 08:59 Last Admin: 06/19/18 08:51 Dose: 300 mg Latanoprost (Xalatan 0.005% Ophth Soln) 1 drop EACH EYE HS [facility] Stop: 08/11/18 20:59 Last Admin: 06/18/18 20:31 Dose: 1 drop Magnesium Hydroxide (Milk Of Magnesia) 30 ml PO HS PRN PRN Reason: Constipation Memantine (Namenda) 10 mg PO BID [facility] Stop: 08/11/18 08:59 Last Admin: 06/19/18 08:47 Dose: 10 mg Quetiapine Fumarate (Seroquel) 100 mg PO HS [facility]; Protocol Stop: 08/17/18 20:59 Last Admin: 06/18/18 20:32 Dose: 100 mg General: Alert, Other (confused, not oriented) HEENT: Atraumatic Neck: Supple Cardiovascular: Regular rate Lungs: Clear to auscultation Abdomen: Bowel sounds, Soft Extremities: Other (No edema) Neurological: Normal gait Skin: Other (and dry) Psych/Mental Status: Other (Confused, not oriented) - Procedures Procedures: Procedures Procedure Code Date OTHER GROUP THERAPY 94.44 09/22/13 Assessment/Plan - Assessment Assessment: Patient is awake, alert, calm in no acute distress. Dx: Increased in agitation , Psychosis, Dementia, HTN, COPD, - Plan Plan: Patient is follow by Psychiatry. Will continue [facility] meds. Nutritional Asmnt/Malnutr-PDOC - Dietary Evaluation Malnutrition Findings (Please click <Entered> for more info): Nutritional Asmnt/Malnutrition Start: 06/17/18 14: 21 Text: Status: Complete Freq: Protocol: Document 06/17/18 14:21 LCHENG (Rec: 06/17/18 14:32 LCRITAG [email or web address]) Nutritional Asmnt/Malnutrition Patient General Information Nutritional Screening Low Risk Diagnosis psychosis Pertinent Medical Hx/Surgical Hx CAD, CHF, HTN, dementia, psychosis, schizophrenia Subjective Information Pt seen in [facility], [place] speaking. Per EMR, PO intake 100%. Current Diet Order/ Nutrition Support regular Pertinent Medications oscal w/vit D, colace, seroquel Pertinent Labs 06/13 Cr 0.6, alb 3.7, glucose 89 9/8 glucose 107, alb 4.0 Nutritional Hx/Data Height 1.73 m Height (Calculated Centimeters) 172.7 Current Weight (lbs) 72.575 kg Weight (Calculated Kilograms) 72.6 Weight (Calculated Grams) 85653.8 [place] Body Weight 154 Body Mass Index (BMI) 24.3 Weight Status Approriate GI Symptoms GI Symptoms None Last BM 06/15 Difficult in: None Skin Integrity/Comment: dryness Current %PO Good (75-100%) Estimated Nutritional Goals BEE in Kcals: Using Current wt Calories/Kcals/Kg 25-30 Kcals Calculated 9785-4158 Protein: Using Current wt Protein g/k Protein Calculated 73 Fluid: ml 1825-2190ml (1ml/kcal) Nutritional Problem No current Nutrition Prob Problem N/A Malnutrition Alert Is there a minimum of two criteria No selected? Query Text:Check all the applicable criteria. A minimum of two criteria are recommended for diagnosis of either severe or non-severe malnutrition. Malnutrition Related to Morbid Obesity Malnutrition related to morbid obesity No Intervention/Recommendation Comments 1. Continue with regular diet as ordered. 2. Monitor PO intake, wt, labs and skin integrity 3. F/U as low risk in 7 days, 06/24 Expected Outcomes/Goals Expected Outcomes/Goals 1. PO intake to meet at least 75% of nutritional needs. 2. Wt stability, skin to remain intact, labs to approach WNL.
--- NOTE | 2018-06-20 03:11 | Progress Notes ---
DATE: 06/19/2018 SUBJECTIVE: Staff was spoken to. The patient is interviewed. Mood is noted to be irritable. Affect is constricted. Coping skills are noted to be still poor. Insight and judgment are noted to be limited. No side effects to the medications are noted. The patient has been going on a tangent and is not making much sense. The patient has paranoid delusions, but denies any command hallucinations. The patient is currently on Seroquel and is able to tolerate the medications. No side effects to the medications are noted. ASSESSMENT: The patient is still paranoid and the patient is going to be continued on the Seroquel and followed up with the supportive therapy. The patient is also on the valproic acid for his seizures. JOB# [id number]
[2018-06-20] MEDS: Multivitamin w/ Minerals Tab PO SCH (08:06)
[2018-06-20] MEDS: Calcium Carb/Vit D 500 mg/200 U Tab PO SCH ×2 (08:06→17:24)
--- NOTE | 2018-06-20 08:52 | General Progress Note ---
Subjective - Review of Systems Service Date: 06/20/18 Subjective: Patient is confused. Objective - Results Result Diagrams: 06/13/18 06:20 06/13/18 06:20 Recent Labs: Laboratory Last Values WBC 8.9 Th/cmm (4.8-10.8) 06/13/18 06:20 RBC 5.18 Mil/cmm (4.30-5.70) 06/13/18 06:20 Hgb 16.2 gm/dL (12-16) 06/13/18 06:20 Hct 47.6 % (41.0-60) 06/13/18 06:20 MCV 91.8 fl (80-99) 06/13/18 06:20 MCH 31.2 pg (26.0-30.0) H 06/13/18 06:20 MCHC Differential 34.0 pg (28.0-36.0) 06/13/18 06:20 RDW 12.2 % (11.5-20.0) 06/13/18 06:20 Plt Count 150 Th/cmm (150-400) 06/13/18 06:20 MPV 10.2 fl 06/13/18 06:20 Add Manual Diff YES 06/13/18 06:20 Neutrophils % CUT OFF SAW OPERATOR METAL 06/13/18 06:20 Band Neutrophils % 0 % (0-10) 06/13/18 06:20 Lymphocytes % CUT OFF SAW OPERATOR METAL 06/13/18 06:20 Monocytes % CUT OFF SAW OPERATOR METAL 06/13/18 06:20 Eosinophils % CUT OFF SAW OPERATOR METAL 06/13/18 06:20 Basophils % CUT OFF SAW OPERATOR METAL 06/13/18 06:20 Neutrophils (Manual) 43 % (40-80) 06/13/18 06:20 Lymphocytes 34 % (20-50) 06/13/18 06:20 Monocytes 10 % (2-10) 06/13/18 06:20 Eosinophils 3 % (0-5) 06/13/18 06:20 Basophils 0 % (0-3) 06/13/18 06:20 Sodium 138 mEq/L (136-145) 06/13/18 06:20 Potassium 4.0 mEq/L (3.5-5.1) 06/13/18 06:20 Chloride 106 mEq/L (98-107) 06/13/18 06:20 Carbon Dioxide 26.3 mEq/L (21.0-31.0) 06/13/18 06:20 Anion Gap 9.7 (7.0-16.0) 06/13/18 06:20 BUN 12 mg/dL (7-25) 06/13/18 06:20 Creatinine 0.6 mg/dL (0.7-1.3) L 06/13/18 06:20 Est GFR ( Amer) > 60.0 ml/min (>90) 06/13/18 06:20 Est GFR (Non-Af Amer) > 60.0 ml/min 06/13/18 06:20 BUN/Creatinine Ratio 20.0 06/13/18 06:20 Glucose 89 mg/dL (70-105) 06/13/18 06:20 Calcium 9.3 mg/dL (8.6-10.3) 06/13/18 06:20 Total Bilirubin 0.7 mg/dL (0.3-1.0) 06/13/18 06:20 AST 24 U/L (13-39) 06/13/18 06:20 ALT 32 U/L (7-52) 06/13/18 06:20 Alkaline Phosphatase 30 U/L (34-104) L 06/13/18 06:20 Troponin I < 0.01 ng/mL (0.01-0.05) L 06/11/18 15:55 Total Protein 6.8 gm/dL (6.0-8.3) 06/13/18 06:20 Albumin 3.7 gm/dL (4.2-5.5) L 06/13/18 06:20 Globulin 3.1 gm/dL 06/13/18 06:20 Albumin/Globulin Ratio 1.2 (1.0-1.8) 06/13/18 06:20 Triglycerides 99 mg/dL (<150) 06/14/18 07:20 Cholesterol 113 mg/dL (<200) 06/14/18 07:20 LDL Cholesterol Direct 77 mg/dL (75-193) 06/14/18 07:20 HDL Cholesterol 31 mg/dL (23-92) 06/14/18 07:20 TSH 2.22 uIU/ml (0.34-5.60) 06/11/18 15:55 - Physical Exam Vitals and I&O: Vital Signs Temp 97.9 F 06/20/18 06:29 Pulse 58 06/20/18 06:29 Resp 19 06/20/18 06:29 BP 102/65 06/20/18 06:29 Pulse Ox 97 06/20/18 06:29 Intake & Output 06/19/18 06/20/18 06/20/18 18:59 06:59 18:59 Intake Total 1200 480 Balance 1200 480 Intake: Oral 1200 480 Other: # Voids 4 3 # Bowel Movements 2 0 Active Medications: Current Medications Acetaminophen (Tylenol) 650 mg PO Q6H PRN PRN Reason: Mild Pain 1-3 / Temp above 100 Stop: 08/10/18 18:09 Al Hydrox/Mg Hydrox/Simethicone (Maalox) 30 ml PO Q4HR PRN PRN Reason: GI DISTRESS Stop: 08/10/18 18:09 Brimonidine Tartrate (Alphagan 0.15% Ophth Soln) 1 drop EACH EYE TID [facility] Stop: 08/11/18 08:59 Last Admin: 06/20/18 08:06 Dose: 1 drop Calcium/Vitamin D (Oscal W/Vitamin D) 1 tab PO BID [facility] Stop: 08/11/18 08:59 Last Admin: 06/20/18 08:06 Dose: 1 tab Clonazepam (Klonopin) 0.5 mg PO DAILY [facility]; Protocol Stop: 08/11/18 08:59 Last Admin: 06/20/18 08:07 Dose: 0.5 mg Divalproex Sodium (Depakote Er) 1,000 mg PO DAILY [facility]; Protocol Stop: 08/11/18 08:59 Last Admin: 06/20/18 08:07 Dose: 1,000 mg Docusate Sodium (Colace) 100 mg PO BID [facility] Stop: 08/11/18 08:59 Last Admin: 06/20/18 08:06 Dose: 100 mg Isoniazid (Inh) 300 mg PO DAILY [facility] Stop: 08/11/18 08:59 Last Admin: 06/20/18 08:07 Dose: 300 mg Latanoprost (Xalatan 0.005% Ophth Soln) 1 drop EACH EYE HS [facility] Stop: 08/11/18 20:59 Last Admin: 06/19/18 20:34 Dose: 1 drop Magnesium Hydroxide (Milk Of Magnesia) 30 ml PO HS PRN PRN Reason: Constipation Memantine (Namenda) 10 mg PO BID [facility] Stop: 08/11/18 08:59 Last Admin: 06/20/18 08:06 Dose: 10 mg Quetiapine Fumarate (Seroquel) 100 mg PO HS [facility]; Protocol Stop: 08/17/18 20:59 Last Admin: 06/19/18 20:34 Dose: 100 mg General: Alert, Other (confused, not oriented) HEENT: Atraumatic Neck: Supple Cardiovascular: Regular rate Lungs: Clear to auscultation Abdomen: Bowel sounds, Soft Extremities: Other (No edema) Neurological: Normal gait Skin: Other (and dry) Psych/Mental Status: Other (Confused, not oriented) - Procedures Procedures: Procedures Procedure Code Date OTHER GROUP THERAPY 94.44 09/22/13 Assessment/Plan - Assessment Assessment: Patient is awake, alert, calm in no acute distress. Dx: Increased in agitation , Psychosis, Dementia, HTN, COPD, - Plan Plan: Patient is follow by Psychiatry. Will continue [facility] meds. Nutritional Asmnt/Malnutr-PDOC - Dietary Evaluation Malnutrition Findings (Please click <Entered> for more info): Nutritional Asmnt/Malnutrition Start: 06/17/18 14: 21 Text: Status: Complete Freq: Protocol: Document 06/17/18 14:21 LCHENG (Rec: 06/17/18 14:32 LCRITAG [email or web address]) Nutritional Asmnt/Malnutrition Patient General Information Nutritional Screening Low Risk Diagnosis psychosis Pertinent Medical Hx/Surgical Hx CAD, CHF, HTN, dementia, psychosis, schizophrenia Subjective Information Pt seen in [facility], [place] speaking. Per EMR, PO intake 100%. Current Diet Order/ Nutrition Support regular Pertinent Medications oscal w/vit D, colace, seroquel Pertinent Labs 06/13 Cr 0.6, alb 3.7, glucose 89 9/8 glucose 107, alb 4.0 Nutritional Hx/Data Height 1.73 m Height (Calculated Centimeters) 172.7 Current Weight (lbs) 72.575 kg Weight (Calculated Kilograms) 72.6 Weight (Calculated Grams) 62658.8 [place] Body Weight 154 Body Mass Index (BMI) 24.3 Weight Status Approriate GI Symptoms GI Symptoms None Last BM 06/15 Difficult in: None Skin Integrity/Comment: dryness Current %PO Good (75-100%) Estimated Nutritional Goals BEE in Kcals: Using Current wt Calories/Kcals/Kg 25-30 Kcals Calculated 4823-1490 Protein: Using Current wt Protein g/k Protein Calculated 73 Fluid: ml 1825-2190ml (1ml/kcal) Nutritional Problem No current Nutrition Prob Problem N/A Malnutrition Alert Is there a minimum of two criteria No selected? Query Text:Check all the applicable criteria. A minimum of two criteria are recommended for diagnosis of either severe or non-severe malnutrition. Malnutrition Related to Morbid Obesity Malnutrition related to morbid obesity No Intervention/Recommendation Comments 1. Continue with regular diet as ordered. 2. Monitor PO intake, wt, labs and skin integrity 3. F/U as low risk in 7 days, 06/24 Expected Outcomes/Goals Expected Outcomes/Goals 1. PO intake to meet at least 75% of nutritional needs. 2. Wt stability, skin to remain intact, labs to approach WNL.
--- NOTE | 2018-06-20 17:58 | Progress Notes ---
DATE: 06/20/2018 SUBJECTIVE: Staff was spoken to. The patient is interviewed. Mood is noted to be irritable. Affect is constricted. The patient is paranoid at this time and is not making much sense. The patient goes on a tangent. Coping skills are noted to be very poor. No side effects to the medications are noted. ASSESSMENT: The patient is still psychotic. PLAN: To continue the patient with the current medications and followup. JOB# [id number]
--- NOTE | 2018-06-21 06:37 | General Progress Note ---
Subjective - Review of Systems Service Date: 06/21/18 Subjective: Patient is confused. Objective - Results Result Diagrams: 06/13/18 06:20 06/13/18 06:20 Recent Labs: Laboratory Last Values WBC 8.9 Th/cmm (4.8-10.8) 06/13/18 06:20 RBC 5.18 Mil/cmm (4.30-5.70) 06/13/18 06:20 Hgb 16.2 gm/dL (12-16) 06/13/18 06:20 Hct 47.6 % (41.0-60) 06/13/18 06:20 MCV 91.8 fl (80-99) 06/13/18 06:20 MCH 31.2 pg (26.0-30.0) H 06/13/18 06:20 MCHC Differential 34.0 pg (28.0-36.0) 06/13/18 06:20 RDW 12.2 % (11.5-20.0) 06/13/18 06:20 Plt Count 150 Th/cmm (150-400) 06/13/18 06:20 MPV 10.2 fl 06/13/18 06:20 Add Manual Diff YES 06/13/18 06:20 Neutrophils % TORPEDO WORKER 06/13/18 06:20 Band Neutrophils % 0 % (0-10) 06/13/18 06:20 Lymphocytes % TORPED[employer] WORKER 06/13/18 06:20 Monocytes % TORPED[employer] WORKER 06/13/18 06:20 Eosinophils % TORPED[employer] WORKER 06/13/18 06:20 Basophils % TORPED[employer] WORKER 06/13/18 06:20 Neutrophils (Manual) 43 % (40-80) 06/13/18 06:20 Lymphocytes 34 % (20-50) 06/13/18 06:20 Monocytes 10 % (2-10) 06/13/18 06:20 Eosinophils 3 % (0-5) 06/13/18 06:20 Basophils 0 % (0-3) 06/13/18 06:20 Sodium 138 mEq/L (136-145) 06/13/18 06:20 Potassium 4.0 mEq/L (3.5-5.1) 06/13/18 06:20 Chloride 106 mEq/L (98-107) 06/13/18 06:20 Carbon Dioxide 26.3 mEq/L (21.0-31.0) 06/13/18 06:20 Anion Gap 9.7 (7.0-16.0) 06/13/18 06:20 BUN 12 mg/dL (7-25) 06/13/18 06:20 Creatinine 0.6 mg/dL (0.7-1.3) L 06/13/18 06:20 Est GFR ( Amer) > 60.0 ml/min (>90) 06/13/18 06:20 Est GFR (Non-Af Amer) > 60.0 ml/min 06/13/18 06:20 BUN/Creatinine Ratio 20.0 06/13/18 06:20 Glucose 89 mg/dL (70-105) 06/13/18 06:20 Calcium 9.3 mg/dL (8.6-10.3) 06/13/18 06:20 Total Bilirubin 0.7 mg/dL (0.3-1.0) 06/13/18 06:20 AST 24 U/L (13-39) 06/13/18 06:20 ALT 32 U/L (7-52) 06/13/18 06:20 Alkaline Phosphatase 30 U/L (34-104) L 06/13/18 06:20 Troponin I < 0.01 ng/mL (0.01-0.05) L 06/11/18 15:55 Total Protein 6.8 gm/dL (6.0-8.3) 06/13/18 06:20 Albumin 3.7 gm/dL (4.2-5.5) L 06/13/18 06:20 Globulin 3.1 gm/dL 06/13/18 06:20 Albumin/Globulin Ratio 1.2 (1.0-1.8) 06/13/18 06:20 Triglycerides 99 mg/dL (<150) 06/14/18 07:20 Cholesterol 113 mg/dL (<200) 06/14/18 07:20 LDL Cholesterol Direct 77 mg/dL (75-193) 06/14/18 07:20 HDL Cholesterol 31 mg/dL (23-92) 06/14/18 07:20 TSH 2.22 uIU/ml (0.34-5.60) 06/11/18 15:55 - Physical Exam Vitals and I&O: Vital Signs Temp 97.8 F 06/21/18 06:21 Pulse 60 06/21/18 06:21 Resp 18 06/21/18 06:21 BP 106/62 06/21/18 06:21 Pulse Ox 98 06/21/18 06:21 Intake & Output 06/20/18 06/20/18 06/21/18 06:59 18:59 06:59 Intake Total 480 1400 120 Balance 480 1400 120 Intake: Oral 480 1400 120 Other: # Voids 3 4 3 # Bowel Movements 0 1 0 Active Medications: Current Medications Acetaminophen (Tylenol) 650 mg PO Q6H PRN PRN Reason: Mild Pain 1-3 / Temp above 100 Stop: 08/10/18 18:09 Al Hydrox/Mg Hydrox/Simethicone (Maalox) 30 ml PO Q4HR PRN PRN Reason: GI DISTRESS Stop: 08/10/18 18:09 Brimonidine Tartrate (Alphagan 0.15% Ophth Soln) 1 drop EACH EYE TID [facility] Stop: 08/11/18 08:59 Last Admin: 06/20/18 21:01 Dose: Not Given Calcium/Vitamin D (Oscal W/Vitamin D) 1 tab PO BID [facility] Stop: 08/11/18 08:59 Last Admin: 06/20/18 17:24 Dose: 1 tab Clonazepam (Klonopin) 0.5 mg PO DAILY [facility]; Protocol Stop: 08/11/18 08:59 Last Admin: 06/20/18 08:07 Dose: 0.5 mg Divalproex Sodium (Depakote Er) 1,000 mg PO DAILY [facility]; Protocol Stop: 08/11/18 08:59 Last Admin: 06/20/18 08:07 Dose: 1,000 mg Docusate Sodium (Colace) 100 mg PO BID [facility] Stop: 08/11/18 08:59 Last Admin: 06/20/18 17:24 Dose: 100 mg Isoniazid (Inh) 300 mg PO DAILY [facility] Stop: 08/11/18 08:59 Last Admin: 06/20/18 08:07 Dose: 300 mg Latanoprost (Xalatan 0.005% Ophth Soln) 1 drop EACH EYE HS [facility] Stop: 08/11/18 20:59 Last Admin: 06/20/18 21:01 Dose: Not Given Magnesium Hydroxide (Milk Of Magnesia) 30 ml PO HS PRN PRN Reason: Constipation Memantine (Namenda) 10 mg PO BID [facility] Stop: 08/11/18 08:59 Last Admin: 06/20/18 17:24 Dose: 10 mg Quetiapine Fumarate (Seroquel) 100 mg PO HS [facility]; Protocol Stop: 08/17/18 20:59 Last Admin: 06/20/18 21:01 Dose: Not Given Zolpidem Tartrate (Ambien) 5 mg PO HS PRN PRN Reason: Insomnia Stop: 08/19/18 11:39 General: Alert, Other (confused, not oriented) HEENT: Atraumatic Neck: Supple Cardiovascular: Regular rate Lungs: Clear to auscultation Abdomen: Bowel sounds, Soft Extremities: Other (No edema) Neurological: Normal gait Skin: Other (and dry) Psych/Mental Status: Other (Confused, not oriented) - Procedures Procedures: Procedures Procedure Code Date OTHER GROUP THERAPY 94.44 09/22/13 Assessment/Plan - Assessment Assessment: Patient is awake, alert, calm in no acute distress. Dx: Increased in agitation , Psychosis, Dementia, HTN, COPD, - Plan Plan: Patient is follow by Psychiatry. Will continue [facility] meds. Nutritional Asmnt/Malnutr-PDOC - Dietary Evaluation Malnutrition Findings (Please click <Entered> for more info): Nutritional Asmnt/Malnutrition Start: 06/17/18 14: 21 Text: Status: Complete Freq: Protocol: Document 06/17/18 14:21 LCHENG (Rec: 06/17/18 14:32 [email or web address]) Nutritional Asmnt/Malnutrition Patient General Information Nutritional Screening Low Risk Diagnosis psychosis Pertinent Medical Hx/Surgical Hx CAD, CHF, HTN, dementia, psychosis, schizophrenia Subjective Information Pt seen in [facility], Macedonian speaking. Per EMR, PO intake 100%. Current Diet Order/ Nutrition Support regular Pertinent Medications oscal w/vit D, colace, seroquel Pertinent Labs 06/13 Cr 0.6, alb 3.7, glucose 89 9/8 glucose 107, alb 4.0 Nutritional Hx/Data Height 1.73 m Height (Calculated Centimeters) 172.7 Current Weight (lbs) 72.575 kg Weight (Calculated Kilograms) 72.6 Weight (Calculated Grams) 65147.8 [place] Body Weight 154 Body Mass Index (BMI) 24.3 Weight Status Approriate GI Symptoms GI Symptoms None Last BM 06/15 Difficult in: None Skin Integrity/Comment: dryness Current %PO Good (75-100%) Estimated Nutritional Goals BEE in Kcals: Using Current wt Calories/Kcals/Kg 25-30 Kcals Calculated 4836-1904 Protein: Using Current wt Protein g/k Protein Calculated 73 Fluid: ml 1825-2190ml (1ml/kcal) Nutritional Problem No current Nutrition Prob Problem N/A Malnutrition Alert Is there a minimum of two criteria No selected? Query Text:Check all the applicable criteria. A minimum of two criteria are recommended for diagnosis of either severe or non-severe malnutrition. Malnutrition Related to Morbid Obesity Malnutrition related to morbid obesity No Intervention/Recommendation Comments 1. Continue with regular diet as ordered. 2. Monitor PO intake, wt, labs and skin integrity 3. F/U as low risk in 7 days, 06/24 Expected Outcomes/Goals Expected Outcomes/Goals 1. PO intake to meet at least 75% of nutritional needs. 2. Wt stability, skin to remain intact, labs to approach WNL.
[2018-06-21] MEDS: Calcium Carb/Vit D 500 mg/200 U Tab PO SCH ×2 (08:50→17:14)
[2018-06-21] MEDS: Multivitamin w/ Minerals Tab PO SCH (09:30)
--- NOTE | 2018-06-21 23:18 | Progress Notes ---
DATE: 06/21/2018 SUBJECTIVE: Staff was spoken to. The patient is interviewed. Mood is noted to be less irritable. Affect is constricted. Insight and judgment at this time are noted to be still impaired. The patient is pacing. The patient has been having difficult time to cope with the stress. No side effect to the medications are noted. ASSESSMENT: The patient is very paranoid. PLAN: To continue the patient with supportive therapy and followup. JOB# [id number]
[2018-06-22] MEDS: Multivitamin w/ Minerals Tab PO SCH (08:33)
[2018-06-22] MEDS: Calcium Carb/Vit D 500 mg/200 U Tab PO SCH ×2 (08:33→17:16)
--- NOTE | 2018-06-22 09:08 | General Progress Note ---
Subjective - Review of Systems Service Date: 06/22/18 Subjective: Patient is confused. Objective - Results Result Diagrams: 06/13/18 06:20 06/13/18 06:20 Recent Labs: Laboratory Last Values WBC 8.9 Th/cmm (4.8-10.8) 06/13/18 06:20 RBC 5.18 Mil/cmm (4.30-5.70) 06/13/18 06:20 Hgb 16.2 gm/dL (12-16) 06/13/18 06:20 Hct 47.6 % (41.0-60) 06/13/18 06:20 MCV 91.8 fl (80-99) 06/13/18 06:20 MCH 31.2 pg (26.0-30.0) H 06/13/18 06:20 MCHC Differential 34.0 pg (28.0-36.0) 06/13/18 06:20 RDW 12.2 % (11.5-20.0) 06/13/18 06:20 Plt Count 150 Th/cmm (150-400) 06/13/18 06:20 MPV 10.2 fl 06/13/18 06:20 Add Manual Diff YES 06/13/18 06:20 Neutrophils % SOFTWARE ENGINEERING MANAGER 06/13/18 06:20 Band Neutrophils % 0 % (0-10) 06/13/18 06:20 Lymphocytes % SOFTWARE ENGINEERING MANAGER 06/13/18 06:20 Monocytes % SOFTWARE ENGINEERING MANAGER 06/13/18 06:20 Eosinophils % SOFTWARE ENGINEERING MANAGER 06/13/18 06:20 Basophils % SOFTWARE ENGINEERING MANAGER 06/13/18 06:20 Neutrophils (Manual) 43 % (40-80) 06/13/18 06:20 Lymphocytes 34 % (20-50) 06/13/18 06:20 Monocytes 10 % (2-10) 06/13/18 06:20 Eosinophils 3 % (0-5) 06/13/18 06:20 Basophils 0 % (0-3) 06/13/18 06:20 Sodium 138 mEq/L (136-145) 06/13/18 06:20 Potassium 4.0 mEq/L (3.5-5.1) 06/13/18 06:20 Chloride 106 mEq/L (98-107) 06/13/18 06:20 Carbon Dioxide 26.3 mEq/L (21.0-31.0) 06/13/18 06:20 Anion Gap 9.7 (7.0-16.0) 06/13/18 06:20 BUN 12 mg/dL (7-25) 06/13/18 06:20 Creatinine 0.6 mg/dL (0.7-1.3) L 06/13/18 06:20 Est GFR ( Amer) > 60.0 ml/min (>90) 06/13/18 06:20 Est GFR (Non-Af Amer) > 60.0 ml/min 06/13/18 06:20 BUN/Creatinine Ratio 20.0 06/13/18 06:20 Glucose 89 mg/dL (70-105) 06/13/18 06:20 Calcium 9.3 mg/dL (8.6-10.3) 06/13/18 06:20 Total Bilirubin 0.7 mg/dL (0.3-1.0) 06/13/18 06:20 AST 24 U/L (13-39) 06/13/18 06:20 ALT 32 U/L (7-52) 06/13/18 06:20 Alkaline Phosphatase 30 U/L (34-104) L 06/13/18 06:20 Troponin I < 0.01 ng/mL (0.01-0.05) L 06/11/18 15:55 Total Protein 6.8 gm/dL (6.0-8.3) 06/13/18 06:20 Albumin 3.7 gm/dL (4.2-5.5) L 06/13/18 06:20 Globulin 3.1 gm/dL 06/13/18 06:20 Albumin/Globulin Ratio 1.2 (1.0-1.8) 06/13/18 06:20 Triglycerides 99 mg/dL (<150) 06/14/18 07:20 Cholesterol 113 mg/dL (<200) 06/14/18 07:20 LDL Cholesterol Direct 77 mg/dL (75-193) 06/14/18 07:20 HDL Cholesterol 31 mg/dL (23-92) 06/14/18 07:20 TSH 2.22 uIU/ml (0.34-5.60) 06/11/18 15:55 - Physical Exam Vitals and I&O: Vital Signs Temp 97.4 F 06/22/18 05:24 Pulse 67 06/22/18 05:24 Resp 19 06/22/18 05:24 BP 96/51 06/22/18 05:24 Pulse Ox 99 06/22/18 05:24 Intake & Output 06/21/18 06/22/18 06/22/18 18:59 06:59 18:59 Intake Total 900 120 Balance 900 120 Intake: Oral 900 120 Other: # Voids 3 2 # Bowel Movements 1 Active Medications: Current Medications Acetaminophen (Tylenol) 650 mg PO Q6H PRN PRN Reason: Mild Pain 1-3 / Temp above 100 Stop: 08/10/18 18:09 Al Hydrox/Mg Hydrox/Simethicone (Maalox) 30 ml PO Q4HR PRN PRN Reason: GI DISTRESS Stop: 08/10/18 18:09 Brimonidine Tartrate (Alphagan 0.15% Ophth Soln) 1 drop EACH EYE TID [facility] Stop: 08/11/18 08:59 Last Admin: 06/22/18 08:33 Dose: 1 drop Calcium/Vitamin D (Oscal W/Vitamin D) 1 tab PO BID [facility] Stop: 08/11/18 08:59 Last Admin: 06/22/18 08:33 Dose: 1 tab Clonazepam (Klonopin) 0.5 mg PO DAILY [facility]; Protocol Stop: 08/11/18 08:59 Last Admin: 06/22/18 08:33 Dose: 0.5 mg Divalproex Sodium (Depakote Er) 1,000 mg PO DAILY [facility]; Protocol Stop: 08/11/18 08:59 Last Admin: 06/22/18 08:33 Dose: 1,000 mg Docusate Sodium (Colace) 100 mg PO BID [facility] Stop: 08/11/18 08:59 Last Admin: 06/22/18 08:33 Dose: 100 mg Isoniazid (Inh) 300 mg PO DAILY [facility] Stop: 08/11/18 08:59 Last Admin: 06/22/18 08:33 Dose: 300 mg Latanoprost (Xalatan 0.005% Ophth Soln) 1 drop EACH EYE HS [facility] Stop: 08/11/18 20:59 Last Admin: 06/21/18 20:13 Dose: Not Given Magnesium Hydroxide (Milk Of Magnesia) 30 ml PO HS PRN PRN Reason: Constipation Memantine (Namenda) 10 mg PO BID [facility] Stop: 08/11/18 08:59 Last Admin: 06/22/18 08:33 Dose: 10 mg Quetiapine Fumarate (Seroquel) 100 mg PO HS [facility]; Protocol Stop: 08/17/18 20:59 Last Admin: 06/21/18 20:12 Dose: 100 mg Zolpidem Tartrate (Ambien) 5 mg PO HS PRN PRN Reason: Insomnia Stop: 08/19/18 11:39 General: Alert, Other (confused, not oriented) HEENT: Atraumatic Neck: Supple Cardiovascular: Regular rate Lungs: Clear to auscultation Abdomen: Bowel sounds, Soft Extremities: Other (No edema) Neurological: Normal gait Skin: Other (and dry) Psych/Mental Status: Other (Confused, not oriented) - Procedures Procedures: Procedures Procedure Code Date OTHER GROUP THERAPY 94.44 09/22/13 Assessment/Plan - Assessment Assessment: Patient is awake, alert, calm in no acute distress. Dx: Increased in agitation , Psychosis, Dementia, HTN, COPD, - Plan Plan: Patient is follow by Psychiatry. Will continue [facility] meds. Nutritional Asmnt/Malnutr-PDOC - Dietary Evaluation Malnutrition Findings (Please click <Entered> for more info): Nutritional Asmnt/Malnutrition Start: 06/17/18 14: 21 Text: Status: Complete Freq: Protocol: Document 06/17/18 14:21 LCHENG (Rec: 06/17/18 14:32 [email or web address] [email or web address]) Nutritional Asmnt/Malnutrition Patient General Information Nutritional Screening Low Risk Diagnosis psychosis Pertinent Medical Hx/Surgical Hx CAD, CHF, HTN, dementia, psychosis, schizophrenia Subjective Information Pt seen in [facility], Arabic speaking. Per EMR, PO intake 100%. Current Diet Order/ Nutrition Support regular Pertinent Medications oscal w/vit D, colace, seroquel Pertinent Labs 06/13 Cr 0.6, alb 3.7, glucose 89 9/8 glucose 107, alb 4.0 Nutritional Hx/Data Height 1.73 m Height (Calculated Centimeters) 172.7 Current Weight (lbs) 72.575 kg Weight (Calculated Kilograms) 72.6 Weight (Calculated Grams) 59622.8 [place] Body Weight 154 Body Mass Index (BMI) 24.3 Weight Status Approriate GI Symptoms GI Symptoms None Last BM 06/15 Difficult in: None Skin Integrity/Comment: dryness Current %PO Good (75-100%) Estimated Nutritional Goals BEE in Kcals: Using Current wt Calories/Kcals/Kg 25-30 Kcals Calculated 6558-6428 Protein: Using Current wt Protein g/k Protein Calculated 73 Fluid: ml 1825-2190ml (1ml/kcal) Nutritional Problem No current Nutrition Prob Problem N/A Malnutrition Alert Is there a minimum of two criteria No selected? Query Text:Check all the applicable criteria. A minimum of two criteria are recommended for diagnosis of either severe or non-severe malnutrition. Malnutrition Related to Morbid Obesity Malnutrition related to morbid obesity No Intervention/Recommendation Comments 1. Continue with regular diet as ordered. 2. Monitor PO intake, wt, labs and skin integrity 3. F/U as low risk in 7 days, 06/24 Expected Outcomes/Goals Expected Outcomes/Goals 1. PO intake to meet at least 75% of nutritional needs. 2. Wt stability, skin to remain intact, labs to approach WNL.
--- NOTE | 2018-06-22 22:37 | Progress Notes ---
DATE: 06/22/2018 SUBJECTIVE: Staff was spoken to. The patient is interviewed. Mood is noted to be less irritable. Affect is appropriate. Not suicidal or homicidal. Insight and judgment are noted to be improving. Impulse control is noted to be fair. No side effects to the medications are noted. The patient has been able to verbalize the concerns rather than to act out. ASSESSMENT: The patient's impulsivity is resolving. PLAN: To continue the patient with the Seroquel and follow the patient up and coordinate the care with the caseworker with possible discharge tomorrow. JOB# [id number]
[2018-06-23] MEDS: Multivitamin w/ Minerals Tab PO SCH (08:30)
[2018-06-23] MEDS: Calcium Carb/Vit D 500 mg/200 U Tab PO SCH ×2 (08:30→16:55)
--- NOTE | 2018-06-23 08:41 | General Progress Note ---
Subjective - Review of Systems Service Date: 06/23/18 Subjective: Patient is confused. Objective - Results Result Diagrams: 06/13/18 06:20 06/13/18 06:20 Recent Labs: Laboratory Last Values WBC 8.9 Th/cmm (4.8-10.8) 06/13/18 06:20 RBC 5.18 Mil/cmm (4.30-5.70) 06/13/18 06:20 Hgb 16.2 gm/dL (12-16) 06/13/18 06:20 Hct 47.6 % (41.0-60) 06/13/18 06:20 MCV 91.8 fl (80-99) 06/13/18 06:20 MCH 31.2 pg (26.0-30.0) H 06/13/18 06:20 MCHC Differential 34.0 pg (28.0-36.0) 06/13/18 06:20 RDW 12.2 % (11.5-20.0) 06/13/18 06:20 Plt Count 150 Th/cmm (150-400) 06/13/18 06:20 MPV 10.2 fl 06/13/18 06:20 Add Manual Diff YES 06/13/18 06:20 Neutrophils % SCHOOL VOCATIONAL EDUCATOR 06/13/18 06:20 Band Neutrophils % 0 % (0-10) 06/13/18 06:20 Lymphocytes % SCHOOL VOCATIONAL EDUCATOR 06/13/18 06:20 Monocytes % SCHOOL VOCATIONAL EDUCATOR 06/13/18 06:20 Eosinophils % SCHOOL VOCATIONAL EDUCATOR 06/13/18 06:20 Basophils % SCHOOL VOCATIONAL EDUCATOR 06/13/18 06:20 Neutrophils (Manual) 43 % (40-80) 06/13/18 06:20 Lymphocytes 34 % (20-50) 06/13/18 06:20 Monocytes 10 % (2-10) 06/13/18 06:20 Eosinophils 3 % (0-5) 06/13/18 06:20 Basophils 0 % (0-3) 06/13/18 06:20 Sodium 138 mEq/L (136-145) 06/13/18 06:20 Potassium 4.0 mEq/L (3.5-5.1) 06/13/18 06:20 Chloride 106 mEq/L (98-107) 06/13/18 06:20 Carbon Dioxide 26.3 mEq/L (21.0-31.0) 06/13/18 06:20 Anion Gap 9.7 (7.0-16.0) 06/13/18 06:20 BUN 12 mg/dL (7-25) 06/13/18 06:20 Creatinine 0.6 mg/dL (0.7-1.3) L 06/13/18 06:20 Est GFR ( Amer) > 60.0 ml/min (>90) 06/13/18 06:20 Est GFR (Non-Af Amer) > 60.0 ml/min 06/13/18 06:20 BUN/Creatinine Ratio 20.0 06/13/18 06:20 Glucose 89 mg/dL (70-105) 06/13/18 06:20 Calcium 9.3 mg/dL (8.6-10.3) 06/13/18 06:20 Total Bilirubin 0.7 mg/dL (0.3-1.0) 06/13/18 06:20 AST 24 U/L (13-39) 06/13/18 06:20 ALT 32 U/L (7-52) 06/13/18 06:20 Alkaline Phosphatase 30 U/L (34-104) L 06/13/18 06:20 Troponin I < 0.01 ng/mL (0.01-0.05) L 06/11/18 15:55 Total Protein 6.8 gm/dL (6.0-8.3) 06/13/18 06:20 Albumin 3.7 gm/dL (4.2-5.5) L 06/13/18 06:20 Globulin 3.1 gm/dL 06/13/18 06:20 Albumin/Globulin Ratio 1.2 (1.0-1.8) 06/13/18 06:20 Triglycerides 99 mg/dL (<150) 06/14/18 07:20 Cholesterol 113 mg/dL (<200) 06/14/18 07:20 LDL Cholesterol Direct 77 mg/dL (75-193) 06/14/18 07:20 HDL Cholesterol 31 mg/dL (23-92) 06/14/18 07:20 TSH 2.22 uIU/ml (0.34-5.60) 06/11/18 15:55 - Physical Exam Vitals and I&O: Vital Signs Temp 97.2 F 06/23/18 06:38 Pulse 62 06/23/18 06:38 Resp 20 06/23/18 06:38 BP 118/62 06/23/18 06:38 Pulse Ox 97 06/23/18 06:38 Intake & Output 06/22/18 06/23/18 06/23/18 18:59 06:59 18:59 Intake Total 1200 120 Balance 1200 120 Intake: Oral 1200 120 Other: # Voids 2 # Bowel Movements 1 Active Medications: Current Medications Acetaminophen (Tylenol) 650 mg PO Q6H PRN PRN Reason: Mild Pain 1-3 / Temp above 100 Stop: 08/10/18 18:09 Al Hydrox/Mg Hydrox/Simethicone (Maalox) 30 ml PO Q4HR PRN PRN Reason: GI DISTRESS Stop: 08/10/18 18:09 Brimonidine Tartrate (Alphagan 0.15% Ophth Soln) 1 drop EACH EYE TID [facility] Stop: 08/11/18 08:59 Last Admin: 06/23/18 08:31 Dose: 1 drop Calcium/Vitamin D (Oscal W/Vitamin D) 1 tab PO BID [facility] Stop: 08/11/18 08:59 Last Admin: 06/23/18 08:30 Dose: 1 tab Clonazepam (Klonopin) 0.5 mg PO DAILY [facility]; Protocol Stop: 08/11/18 08:59 Last Admin: 06/23/18 08:30 Dose: 0.5 mg Divalproex Sodium (Depakote Er) 1,000 mg PO DAILY [facility]; Protocol Stop: 08/11/18 08:59 Last Admin: 06/23/18 08:30 Dose: 1,000 mg Docusate Sodium (Colace) 100 mg PO BID [facility] Stop: 08/11/18 08:59 Last Admin: 06/23/18 08:30 Dose: 100 mg Isoniazid (Inh) 300 mg PO DAILY [facility] Stop: 08/11/18 08:59 Last Admin: 06/23/18 08:33 Dose: 300 mg Latanoprost (Xalatan 0.005% Ophth Soln) 1 drop EACH EYE HS [facility] Stop: 08/11/18 20:59 Last Admin: 06/22/18 20:37 Dose: 1 drop Magnesium Hydroxide (Milk Of Magnesia) 30 ml PO HS PRN PRN Reason: Constipation Memantine (Namenda) 10 mg PO BID [facility] Stop: 08/11/18 08:59 Last Admin: 06/23/18 08:30 Dose: 10 mg Quetiapine Fumarate (Seroquel) 100 mg PO HS [facility]; Protocol Stop: 08/17/18 20:59 Last Admin: 06/22/18 20:37 Dose: 100 mg Zolpidem Tartrate (Ambien) 5 mg PO HS PRN PRN Reason: Insomnia Stop: 08/19/18 11:39 General: Alert, Other (confused, not oriented) HEENT: Atraumatic Neck: Supple Cardiovascular: Regular rate Lungs: Clear to auscultation Abdomen: Bowel sounds, Soft Extremities: Other (No edema) Neurological: Normal gait Skin: Other (and dry) Psych/Mental Status: Other (Confused, not oriented) - Procedures Procedures: Procedures Procedure Code Date OTHER GROUP THERAPY 94.44 09/22/13 Assessment/Plan - Assessment Assessment: Patient is awake, alert, calm in no acute distress. Dx: Increased in agitation , Psychosis, Dementia, HTN, COPD, - Plan Plan: Patient is follow by Psychiatry. Will continue [facility] meds. Nutritional Asmnt/Malnutr-PDOC - Dietary Evaluation Malnutrition Findings (Please click <Entered> for more info): Nutritional Asmnt/Malnutrition Start: 06/17/18 14: 21 Text: Status: Complete Freq: Protocol: Document 06/17/18 14:21 LCHENG (Rec: 06/17/18 14:32 LCHENG [email or web address]) Nutritional Asmnt/Malnutrition Patient General Information Nutritional Screening Low Risk Diagnosis psychosis Pertinent Medical Hx/Surgical Hx CAD, CHF, HTN, dementia, psychosis, schizophrenia Subjective Information Pt seen in [facility], Bengali speaking. Per EMR, PO intake 100%. Current Diet Order/ Nutrition Support regular Pertinent Medications oscal w/vit D, colace, seroquel Pertinent Labs 06/13 Cr 0.6, alb 3.7, glucose 89 /8 glucose 107, alb 4.0 Nutritional Hx/Data Height 1.73 m Height (Calculated Centimeters) 172.7 Current Weight (lbs) 72.575 kg Weight (Calculated Kilograms) 72.6 Weight (Calculated Grams) 11359.8 [place] Body Weight 154 Body Mass Index (BMI) 24.3 Weight Status Approriate GI Symptoms GI Symptoms None Last BM 06/15 Difficult in: None Skin Integrity/Comment: dryness Current %PO Good (75-100%) Estimated Nutritional Goals BEE in Kcals: Using Current wt Calories/Kcals/Kg 25-30 Kcals Calculated 2388-8293 Protein: Using Current wt Protein g/k Protein Calculated 73 Fluid: ml 1825-2190ml (1ml/kcal) Nutritional Problem No current Nutrition Prob Problem N/A Malnutrition Alert Is there a minimum of two criteria No selected? Query Text:Check all the applicable criteria. A minimum of two criteria are recommended for diagnosis of either severe or non-severe malnutrition. Malnutrition Related to Morbid Obesity Malnutrition related to morbid obesity No Intervention/Recommendation Comments 1. Continue with regular diet as ordered. 2. Monitor PO intake, wt, labs and skin integrity 3. F/U as low risk in 7 days, 06/24 Expected Outcomes/Goals Expected Outcomes/Goals 1. PO intake to meet at least 75% of nutritional needs. 2. Wt stability, skin to remain intact, labs to approach WNL.
--- NOTE | 2018-06-23 13:03 | Progress Notes ---
DATE: 06/23/2018 SUBJECTIVE: Staff was spoken to. The patient is interviewed. Mood is noted to be anxious. The patient's insight and judgment are improving. Impulse control and to be fair. Coping skills are also noted to be fair. No side effects to the medications are noted. The patient has been able to verbalize the concerns rather than to act out. ASSESSMENT: The patient is stabilizing. PLAN: To discharge the patient today for followup on outpatient basis. JOB# [id number]
== END 2018-06-23 18:30 | DRG 885 ==
LOC: ER 15:27 → GERO 17:29
DX: F20.0 Paranoid schizophrenia (principal); F29 Unspecified psychosis not due to a substance or known physiological condition; I11.0 Hypertensive heart disease with heart failure; F03.90 Unspecified dementia, unspecified severity, without behavioral disturbance, psychotic disturbance, mood disturbance, and anxiety; J44.9 Chronic obstructive pulmonary disease, unspecified; G40.909 Epilepsy, unspecified, not intractable, without status epilepticus; I25.10 Atherosclerotic heart disease of native coronary artery without angina pectoris; I50.9 Heart failure, unspecified; Z79.899 Other long term (current) drug therapy
CPT/HCPCS: 36415-UA; 71045-TC; 80053-TC; 80061-TC; 83036-90; 84443-TC; 84484-TC; 85007-TC; 85025-TC; 93005; J0696; Z7610